=== PATIENT | female | born 1940 | race Caucasian/White ===

== ENCOUNTER 2017-02-14 14:31 | Emergency (ER) | payer MEDICARE, OTHER ==
[~2017-02-14] VITALS: Ht 170.2 cm; Wt 90.0 kg
[~2017-02-14 14:31] MED LIST: ABIL5TAB6 PO; ALBU1.25PR NEB; ALBU8I INH; BECL80AE3 INH; BUSP10TA PO; CEPH500 PO; DILA2TAB2 PO; DIVA250ER PO; ECOT81TA2 PO; ESCI10TA PO; FLOV44AE IN; GLIP5 PO; LOPE2 PO; METO25CR PO; MONT10 PO; NYSTT TOPICAL; OMEP20TA39 PO; SIMV40 PO; TEMA15 PO; XANA0.5T PO; Z.0.OXYGENDME NC; ZOFR4TAB3 SL
[2017-02-14 14:35] VITALS: BP 149/73; PULSE 65; RESP 18; TEMP 98.9; O2SAT 94
--- NOTE | 2017-02-14 14:41 | PD ---
HPI Chief Complaint: Abdominal Pain Time Seen by Provider: 14:41 Travel History International Travel<30 days: No Contact w/Intl Traveler<30days: No Traveled to known affect area: No History of Present Illness HPI 76-year-old female came to the emergency room with history of left low quadrant pain. Patient says it's been going on for past 2-3 days. Her daughter is here with her and says her appetite has been fine. No history of vomiting but she does have diarrhea. Patient has history of diverticulitis and had partial colectomy done asked here and had colostomy for 4-5 months. Vital signs were stable. [facility] Past Medical History Narrative Medical List of her medical, surgical, social and family history was reviewed from the nursing note. Arthritis: No Asthma: Yes Autoimmune Disease: No Blood Disorders: No Anxiety: Yes Depression: Yes Heart Rhythm Problems: No Cancer: No Cardiovascular Problems: Yes (hx of htn on meds) High Cholesterol: Yes Chemotherapy: No Chest Pain: No Congestive Heart Failure: No COPD: Yes Cerebrovascular Accident: No Diabetes: Yes (type 2) Diminished Hearing: No Endocrine: Yes Gastrointestinal Disorders: Yes ("PROBLEMS DIGESTING MY FOOD") GERD: Yes Glaucoma: No Genitourinary: Yes (UTI,RETENTION) Headaches: Yes Hepatitis: No Hiatal Hernia: Yes (HERNIA REPAIR) Hypertension: Yes Immune Disorder: No Implanted Vascular Access Dvce: Yes Kidney Stones: Yes Musculoskeletal: Yes Neurologic: Yes Psychiatric: Yes (DEPRESSION, BIPOLAR) Reproductive: No Respiratory: Yes (copd) Immunizations Current: No Migraines: No Myocardial Infarction: No Radiation Therapy: No Renal Failure: No Seizures: No Sickle Cell Disease: No Sleep Apnea: Yes (USES CPAP AT NIGHT) Thyroid Disease: No Ulcer: Yes PNEUMOCCOCAL Vaccine (Year): 1 ?: Not Menopausal: Yes : 1 Para: 1 Past Surgical History Abdominal Surgery: Yes (COLOSTOMY REVERSAL,APPENDECTOMY,HERNIA REPAIR) AICD: No Appendectomy: Yes Arteriovenous Shunt: No Body Medical Devices: RIGHT ANKLE FX FIXED WITH PIN & SCREWS, BILATERAL BREAST IMPLANTS Cardiac Surgery: No Cholecystectomy: No Ear Surgery: No Endocrine Surgery: No Eye Surgery: No Genitourinary Surgery: No Gynecologic Surgery: Yes (PARTIAL HYSTERECTOMY) Hysterectomy: Yes Insulin Pump: No Joint Replacement: No Oral Surgery: No Pacemaker: No Thoracic Surgery: No Other Surgery: Yes (APPENDECTOMY, COLOSTOMY,HYSTERECTOMY, BREAST IMPLANTS , REVERSAL OF COLOSTOM) Social History Alcohol Use: No Tobacco Use: No (QUIT 10 YRS AGO SMOKED FOR 30+ YRS 1 PPD) Substance Use: No Allergies-Medications (Allergen,Severity, Reaction): Coded Allergies: Trazodone (Verified Allergy, Severe, HIVES, 02/14/17) Levaquin (Verified Allergy, Mild, Itching, 02/14/17) erythema and pruritis at infusion site Codeine (Verified Adverse Reaction, Severe, NAUSEA/VOMITING, 02/14/17) Demerol (Verified Adverse Reaction, Severe, NAUSEA/VOMITING, 02/14/17) Comments List of her allergies reviewed from the nursing note. Reported Meds & Prescriptions Reported Meds & Active Scripts Active Keflex (Cephalexin) 500 Mg Cap 500 Mg PO Q6H 5 Days Reported Centrum (Multiple Vitamins W/ Minerals) 1 Tab 1 Tab PO DAILY Melatonin 3 Mg Cap 2 Cap PO HS Mirtazapine 15 Mg Tab 15 Mg PO HS Montelukast (Montelukast Sodium) 10 Mg Tab 10 Mg PO HS Zocor (Simvastatin) 20 Mg Tab 20 Mg PO DAILY Metoprolol Tartrate 25 Mg Tab 25 Mg PO DAILY Temazepam 30 Mg Cap 30 Mg PO HS PRN Omeprazole 40 Mg Cap 40 Mg PO DAILY Furosemide 20 Mg Tab 20 Mg PO DAILY Glipizide 10 Mg Tab 10 Mg PO TIDAC Take 30 minutes before a meal Flovent Hfa 10.6 GM Inh (Fluticasone Propionate) 44 Mcg/Act Inh 2 Puff INH BID Use daily at the same time. Escitalopram (Escitalopram Oxalate) 20 Mg Tab 20 Mg PO DAILY Divalproex ER (Divalproex Sodium) 250 Mg Kiya 250 Mg PO DAILY Buspirone (Buspirone HCl) 30 Mg Tab 30 Mg PO TID Aripiprazole 30 Mg Tab 30 Mg PO DAILY Alprazolam 0.5 Mg Tab 0.5 Mg PO TID Albuterol Neb (Albuterol Sulfate) 1.25 Mg/3 Ml Neb 1.25 Mg NEB Q4HR NEB PRN Proair Hfa 8.5 GM Inh (Albuterol Sulfate) 90 Mcg/Act Aer 2 Puff INH Q4-6H PRN 108 mcg/actuation Narrative Medication List of her home medications reviewed from the nursing note. Review of Systems Except as stated in HPI: all other systems reviewed are Neg Physical Exam Narrative GENERAL: Awake, alert, elderly, moderate distress SKIN: Focused skin assessment warm/dry. HEAD: Atraumatic. Normocephalic. EYES: Pupils equal and round. No scleral icterus. No injection or drainage. ENT: No nasal bleeding or discharge. Mucous membranes pink and moist. NECK: Trachea midline. No JVD. CARDIOVASCULAR: Regular rate and rhythm. No murmur appreciated. RESPIRATORY: No accessory muscle use. Clear to auscultation. Breath sounds equal bilaterally. GASTROINTESTINAL: Abdomen soft, tender left lower quadrant, nondistended. Hepatic and splenic margins not palpable. MUSCULOSKELETAL: No obvious deformities. No clubbing. No cyanosis. No edema. NEUROLOGICAL: Awake and alert. No obvious cranial nerve deficits. Motor grossly within normal limits. Normal speech. PSYCHIATRIC: Appropriate mood and affect; insight and judgment normal. Data Data Last Documented VS Vital Signs Date Time Temp Pulse Resp B/P Pulse Ox O2 Delivery O2 Flow Rate FiO2 02/14/17 16:24 88 16 135/64 94 Room Air 02/14/17 14:35 98.9 Orders Complete Blood Count With Diff (02/14/17 14:56) Comprehensive Metabolic Panel (02/14/17 14:56) Lipase (02/14/17 14:56) Urinalysis - C+S If Indicated (02/14/17 14:56) Ct Abd/Pel W/O Iv Contrast (02/14/17 14:56) Iv Access Insert/Monitor (02/14/17 14:56) Ecg Monitoring (02/14/17 14:56) Oximetry (02/14/17 14:56) Sodium Chlor 0.9% 1000 Ml Inj (Ns 1000 M (02/14/17 14:56) Sodium Chloride 0.9% Flush (Ns Flush) (02/14/17 15:00) Urine Culture (02/14/17 16:40) Ketorolac Inj (Toradol Inj) (02/14/17 17:00) Labs Laboratory Tests Test 02/14/17 02/14/17 15:05 16:40 Sodium Level 142 MEQ/L Potassium Level 4.6 MEQ/L Chloride Level 103 MEQ/L Carbon Dioxide Level 32.6 MEQ/L Anion Gap 6 MEQ/L Blood Urea Nitrogen 14 MG/DL Creatinine 1.10 MG/DL Estimat Glomerular Filtration 48 ML/MIN Rate Random Glucose 172 MG/DL Calcium Level 8.9 MG/DL Total Bilirubin 0.4 MG/DL Aspartate Amino Transf 40 U/L (AST/SGOT) Alanine Aminotransferase 29 U/L (ALT/SGPT) Alkaline Phosphatase 114 U/L Total Protein 7.3 GM/DL Albumin 3.1 GM/DL Lipase 120 U/L White Blood Count 10.7 TH/MM3 Red Blood Count 4.18 MIL/MM3 Hemoglobin 13.3 GM/DL Hematocrit 38.7 % Mean Corpuscular Volume 92.6 FL Mean Corpuscular Hemoglobin 31.7 PG Mean Corpuscular Hemoglobin 34.2 % Concent Red Cell Distribution Width 14.0 % Platelet Count 266 TH/MM3 Mean Platelet Volume 7.1 FL Neutrophils (%) (Auto) 70.5 % Lymphocytes (%) (Auto) 20.2 % Monocytes (%) (Auto) 6.8 % Eosinophils (%) (Auto) 1.4 % Basophils (%) (Auto) 1.1 % Neutrophils # (Auto) 7.5 TH/MM3 Lymphocytes # (Auto) 2.2 TH/MM3 Monocytes # (Auto) 0.7 TH/MM3 Eosinophils # (Auto) 0.2 TH/MM3 Basophils # (Auto) 0.1 TH/MM3 CBC Comment DIFF FINAL Differential Comment Urine Color YELLOW Urine Turbidity CLEAR Urine pH 5.5 Urine Specific [place] 1.011 Urine Protein NEG mg/dL Urine Glucose (UA) NEG mg/dL Urine Ketones NEG mg/dL Urine Occult Blood NEG Urine Nitrite NEG Urine Bilirubin NEG Urine Leukocyte Esterase SMALL Urine RBC 0-3 /hpf Urine WBC 3-5 /hpf Urine WBC Clumps RARE Urine Squamous Epithelial > 8 /hpf Cells Urine Bacteria FEW /hpf Urine Mucus FEW /lpf Microscopic Urinalysis Comment CULTURE INDICATED MDM Medical Decision Making Medical Screen Exam Complete: Yes Emergency Medical Condition: Yes Medical Record Reviewed: Yes Differential Diagnosis Acute diverticulitis, colitis, abdominal pain NOS Narrative Course 3:27 PM awaiting for the CAT scan to be done and resulted. CBC is back and within normal limits. Awaiting for the chemistry. Patient will be signed over to the oncoming ER physician at 4 PM. Procedures EKG Prior to Arrival: No Scripts Cephalexin (Keflex)500 Mg [id number] Mg PO Q6H 5 Days Ref 0 Prov:Adalberto Carlisle MD 02/14/17 Anastasia Cortes MD February 14, 2017 14:41
[2017-02-14] MEDS ORDERED: SODIUM CHLOR 0.9% 1000 ML INJ 1,000 ML IV SCH (14:56)
[2017-02-14] MEDS ORDERED: SODIUM CHLORIDE 0.9% FLUSH 10 ML FLUSH IV FLUSH PRN (15:00)
[2017-02-14 15:09] VITALS: O2SAT 94
[2017-02-14] MEDS ORDERED: FURO20TA PO (15:13)
[2017-02-14] MEDS ORDERED: ALBU1.25 NEB (15:13)
[2017-02-14] MEDS ORDERED: DIVA250T3 PO (15:13)
[2017-02-14] MEDS ORDERED: BUSP30TA PO (15:13)
[2017-02-14] MEDS ORDERED: GLIP10TA6 PO (15:13)
[2017-02-14] MEDS ORDERED: TEMA30CA PO (15:13)
[2017-02-14] MEDS ORDERED: ALPR0.5T3 PO (15:13)
[2017-02-14] MEDS ORDERED: FLUTI44I INH (15:13)
[2017-02-14] MEDS ORDERED: ARIP1TAB15 PO (15:13)
[2017-02-14] MEDS ORDERED: ALBUAER3 INH (15:13)
[2017-02-14] MEDS ORDERED: OMEP40CA2 PO (15:13)
[2017-02-14] MEDS ORDERED: ESCI20TA PO (15:13)
[2017-02-14] MEDS ORDERED: MONT10TA4 PO (15:14)
[2017-02-14] MEDS ORDERED: ZOCO20TA PO (15:14)
[2017-02-14] MEDS ORDERED: MELA3CAP PO (15:14)
[2017-02-14] MEDS ORDERED: METO25TA3 PO (15:14)
[2017-02-14] MEDS ORDERED: MIRTA15 PO (15:14)
[2017-02-14] MEDS ORDERED: MULT-6 PO (15:14)
[2017-02-14 15:19] LABS: AUTOMATED NEUTROPHIL # 7.5 TH/MM3 (1.8-7.7); BASOPHIL # 0.1 TH/MM3 (0-0.2); BASOPHIL % 1.1 % (0.0-2.0); EOSINOPHIL # 0.2 TH/MM3 (0-0.4); EOSINOPHIL % 1.4 % (0.0-4.0); HEMATOCRIT 38.7 % (35.0-46.0); HEMO FLAGS DIFF FINAL; LYMPH % 20.2 % (9.0-44.0); LYMPHOCYTE # 2.2 TH/MM3 (1.0-4.8); MEAN CELL VOLUME 92.6 FL (80.0-100.0); MEAN CORPUSCULAR HEMOGLOBIN 31.7 PG (27.0-34.0); MEAN CORPUSCULAR HGB CONC 34.2 % (32.0-36.0); MONO % 6.8 % (0.0-8.0); NEUT % 70.5 % (16.0-70.0); PLATELET COUNT 266 TH/MM3 (150-450); RED BLOOD COUNT 4.18 MIL/MM3 (4.00-5.30); WHITE BLOOD COUNT 10.7 TH/MM3 (4.0-11.0)
[2017-02-14 15:31] LABS: CHLORIDE 103 MEQ/L (98-107); SODIUM (NA) 142 MEQ/L (136-145)
[2017-02-14 15:36] LABS: ANION GAP 6 MEQ/L (5-15); BICARBONATE 32.6 MEQ/L (21.0-32.0); BLOOD UREA NITROGEN 14 MG/DL (7-18)
[2017-02-14 15:39] LABS: ALT (GPT) 29 U/L (10-53); AST (GOT) 40 U/L (15-37); GLOMERULAR FILTRATION RATE 48 ML/MIN (>89)
[2017-02-14 15:40] LABS: TOTAL BILIRUBIN ADULT 0.4 MG/DL (0.2-1.0)
[2017-02-14 15:42] LABS: ALKALINE PHOSPHATASE 114 U/L (45-117)
[2017-02-14 16:14] LABS: POTASSIUM 4.6 MEQ/L (3.5-5.1)
--- NOTE | 2017-02-14 16:14 | RADHPO ---
EXAM DATE/TIME: 02/14/2017 15:05 [place] COMPARISON: CT ABDOMEN & PELVIS W/O CONTRAST, February 26, 2015, 16:17. INDICATIONS : Abdominal pain, cough. ORAL CONTRAST: No oral contrast ingested. RADIATION DOSE: 22.58 CTDIvol (mGy) MEDICAL HISTORY : Hypertension. Hernia. UTI SURGICAL HISTORY : Colostomy. Hysterectomy. ENCOUNTER: Initial ACUITY: 1 day PAIN SCALE: 7/10 LOCATION: Left abdomen TECHNIQUE: Volumetric scanning of the abdomen and pelvis was performed. Using automated exposure control and adjustment of the mA and/or kV according to patient size, radiation dose was kept as low as reasonably achievable to obtain optimal diagnostic quality images. FINDINGS: The lung bases are clear. The liver is free of focal defects. Granulomas are present in the spleen. The pancreas is unremarkable. Gallstones are present in a benign-appearing gallbladde r. Left kidney is unremarkable. Tiny nonobstructing stones are seen in the right kidney. A small midline hernia is evident containing only fat. There is no ascites or adenopathy. Evidence for previous colonic surgery is noted. There is no free a ir or obstruction. CONCLUSION: 1. Negative CT of the abdomen and pelvis for an acute process. I do not see an etiology for the patie nt's abdominal pain. 2. Evidence for a previous colonic surgery is noted. Derik Torres MD FACR on February 14, 2017 at 15:52 Board Certified Radiologist. This report was verified electronically.
[2017-02-14 16:24] VITALS: BP 135/64; PULSE 88; RESP 16; O2SAT 94
[2017-02-14 16:45] LABS: BLOOD, URINE NEG (NEG); GLUCOSE,URINE NEG (NEG); KETONE, URINE NEG (NEG); NITRITE,URINE NEG (NEG); PH, URINE 5.5 (5.0-8.5)
[2017-02-14 16:53] LABS: URINE COLOR YELLOW (YELLW/STRAW)
[2017-02-14 16:54] LABS: BACTERIA, URINE FEW /hpf; MUCUS URINE FEW /lpf (OCC); RBC, URINE 0-3 /hpf (0-3); SQUAMOUS EPITHELIAL CELL URINE > 8 /hpf (0-5)
[2017-02-14 16:55] LABS: COMMENT (UR) CULTURE INDICATED; CULTURE IF INDICATED CULTURE INDICATED
[2017-02-14] MEDS ORDERED: KETOROLAC TROMETHAMINE 30 MG/ML (IVP) VIAL IV PUSH ONE (17:00)
[2017-02-14] MEDS ORDERED: CEPH-460 PO (17:00)
--- NOTE | 2017-02-14 17:00 | PD ---
Data Data Last Documented VS Vital Signs Date Time Temp Pulse Resp B/P Pulse Ox O2 Delivery O2 Flow Rate FiO2 02/14/17 16:24 88 16 135/64 94 Room Air 02/14/17 14:35 98.9 Orders Complete Blood Count With Diff (02/14/17 14:56) Comprehensive Metabolic Panel (02/14/17 14:56) Lipase (02/14/17 14:56) Urinalysis - C+S If Indicated (02/14/17 14:56) Ct Abd/Pel W/O Iv Contrast (02/14/17 14:56) Iv Access Insert/Monitor (02/14/17 14:56) Ecg Monitoring (02/14/17 14:56) Oximetry (02/14/17 14:56) Sodium Chlor 0.9% 1000 Ml Inj (Ns 1000 M (02/14/17 14:56) Sodium Chloride 0.9% Flush (Ns Flush) (02/14/17 15:00) Urine Culture (02/14/17 16:40) Ketorolac Inj (Toradol Inj) (02/14/17 17:00) Labs Laboratory Tests Test 02/14/17 02/14/17 15:05 16:40 White Blood Count 10.7 TH/MM3 Red Blood Count 4.18 MIL/MM3 Hemoglobin 13.3 GM/DL Hematocrit 38.7 % Mean Corpuscular Volume 92.6 FL Mean Corpuscular Hemoglobin 31.7 PG Mean Corpuscular Hemoglobin 34.2 % Concent Red Cell Distribution Width 14.0 % Platelet Count 266 TH/MM3 Mean Platelet Volume 7.1 FL Neutrophils (%) (Auto) 70.5 % Lymphocytes (%) (Auto) 20.2 % Monocytes (%) (Auto) 6.8 % Eosinophils (%) (Auto) 1.4 % Basophils (%) (Auto) 1.1 % Neutrophils # (Auto) 7.5 TH/MM3 Lymphocytes # (Auto) 2.2 TH/MM3 Monocytes # (Auto) 0.7 TH/MM3 Eosinophils # (Auto) 0.2 TH/MM3 Basophils # (Auto) 0.1 TH/MM3 CBC Comment DIFF FINAL Differential Comment Sodium Level 142 MEQ/L Potassium Level 4.6 MEQ/L Chloride Level 103 MEQ/L Carbon Dioxide Level 32.6 MEQ/L Anion Gap 6 MEQ/L Blood Urea Nitrogen 14 MG/DL Creatinine 1.10 MG/DL Estimat Glomerular Filtration 48 ML/MIN Rate Random Glucose 172 MG/DL Calcium Level 8.9 MG/DL Total Bilirubin 0.4 MG/DL Aspartate Amino Transf 40 U/L (AST/SGOT) Alanine Aminotransferase 29 U/L (ALT/SGPT) Alkaline Phosphatase 114 U/L Total Protein 7.3 GM/DL Albumin 3.1 GM/DL Lipase 120 U/L Urine Color YELLOW Urine Turbidity CLEAR Urine pH 5.5 Urine Specific [place] 1.011 Urine Protein NEG mg/dL Urine Glucose (UA) NEG mg/dL Urine Ketones NEG mg/dL Urine Occult Blood NEG Urine Nitrite NEG Urine Bilirubin NEG Urine Leukocyte Esterase SMALL Urine RBC 0-3 /hpf Urine WBC 3-5 /hpf Urine WBC Clumps RARE Urine Squamous Epithelial > 8 /hpf Cells Urine Bacteria FEW /hpf Urine Mucus FEW /lpf Microscopic Urinalysis Comment CULTURE INDICATED MDM Supervised Visit with SCHUYLER: No Narrative Course Patient care assumed from Dr. Cortes at 1600. Is a 76-year-old female presents with left lower quadrant abdominal pain for the past week. She has a completely benign abdominal exam. There is no tenderness no masses no rebound no percussive tenderness. She is resting soundly in the ER stretcher in no apparent distress. She states that currently she is having 8 out of 10 pain. She was given Toradol after my initial exam. I structures were to follow-up her CT, chemistries, and urine tests and disposition appropriate. Patient's CT exam without contrast shows "negative CT of abdomen and pelvis for an acute process. I do not see an etiology for the patient's pain. Evidence for previous colonic surgery is noted." Patient's urinalysis is contaminated with white blood cell clumps. The patient is not having any urinary symptoms. Could be early UTI versus asymptomatic bacteriuria either way the patient has indications to treat. Regimen of Keflex is ordered. Results with the patient after reviewing her records. The review the records that show that the patient was admitted sometime in the past with intractable abdominal pain and ultimately was diagnosed with a bowel perforation. Currently her abdomen is benign and I think she is stable for discharge. Discussed needs follow-up with her motion study technician since she states that she does not have one. She was given a referral for 1. Discussed need follow-up with a primary care physician within a week. Discussed return to ED criteria including fevers. The patient is agreeable for discharge at this time. Diagnosis Primary Impression: LLQ abdominal pain Additional Impression: Asymptomatic bacteriuria Referrals: Twan José MD Med/Other Pt SpecificInfo: Prescription(s) given Scripts Cephalexin (Keflex)500 Mg Phm094 Mg PO Q6H 5 Days Ref 0 Prov:Adalberto Carlisle MD 02/14/17 Disposition: 01 DISCHARGE HOME Condition: Stable Adalberto Carlisle MD February 14, 2017 17:00
== END 2017-02-14 17:19 | disposition home or self-care (01) ==
LOC: PHEFT 14:31
DX: R10.32 Left lower quadrant pain (principal); R82.71 Bacteriuria; R19.7 Diarrhea, unspecified; K57.92 Diverticulitis of intestine, part unspecified, without perforation or abscess without bleeding; J45.909 Unspecified asthma, uncomplicated; E11.9 Type 2 diabetes mellitus without complications; K21.9 Gastro-esophageal reflux disease without esophagitis; I10 Essential (primary) hypertension; J44.9 Chronic obstructive pulmonary disease, unspecified
CPT/HCPCS: 74176; 80053; 81001; 83690; 85025; 87077; 87086; 87186; 96361; 96374; 99284; J1885; J7030

== ENCOUNTER 2017-03-05 22:27 | Emergency (ER) | payer MEDICARE, OTHER ==
[~2017-03-05] VITALS: Ht 170.2 cm; Wt 92.0 kg
[~2017-03-05 22:27] MED LIST changes: -ABIL5TAB6 PO; +ALBU1.25 NEB; -ALBU1.25PR NEB; -ALBU8I INH; +ALBUAER3 INH; +ALPR0.5T3 PO; +ARIP1TAB15 PO; -BECL80AE3 INH; -BUSP10TA PO; +BUSP30TA PO; +CEPH-460 PO; -CEPH500 PO; -DILA2TAB2 PO; -DIVA250ER PO; +DIVA250T3 PO; -ECOT81TA2 PO; -ESCI10TA PO; +ESCI20TA PO; -FLOV44AE IN; +FLUTI44I INH; +FURO20TA PO; +GLIP10TA6 PO; -GLIP5 PO; -LOPE2 PO; +MELA3CAP PO; -METO25CR PO; +METO25TA3 PO; +MIRTA15 PO; -MONT10 PO; +MONT10TA4 PO; +MULT-6 PO; -NYSTT TOPICAL; -OMEP20TA39 PO; +OMEP40CA2 PO; -SIMV40 PO; -TEMA15 PO; +TEMA30CA PO; -XANA0.5T PO; -Z.0.OXYGENDME NC; +ZOCO20TA PO; -ZOFR4TAB3 SL
[2017-03-05 22:34] VITALS: BP 100/77; PULSE 88; RESP 14; TEMP 98.3; O2SAT 93
--- NOTE | 2017-03-05 22:56 | PD ---
HPI Chief Complaint: abdominal pain Time Seen by Provider: 22:40 Travel History International Travel<30 days: No Contact w/Intl Traveler<30days: No Traveled to known affect area: No History of Present Illness HPI This 76-year-old female is complaining of lower abdominal pain. She was here 2- 3 weeks ago for similar pain. At that time she had a CT scan done which was negative. She was found to have a urinary tract infection and was put on Keflex. She followed up with her primary care physician apparently Keflex was not effective and she was changed to Cipro. She has taken most of the Cipro and is at the end of the Cipro but is having increasing abdominal pain. The pain is bilateral in the lower abdomen. She does have a history of diverticulitis and about 2 years ago had surgery for diverticulitis and had a colostomy for temporarily. She does not have a colostomy now. She does have stage I lung cancer that is being monitored. She has stopped smoking she's been eating okay. She is not aware of any fever. PFSH Past Medical History Arthritis: No Asthma: Yes Autoimmune Disease: No Blood Disorders: No Anxiety: Yes Depression: Yes Heart Rhythm Problems: No Cancer: No Cardiovascular Problems: Yes (hx of htn on meds) High Cholesterol: Yes Chemotherapy: No Chest Pain: No Congestive Heart Failure: No COPD: Yes Cerebrovascular Accident: No Diabetes: Yes (type 2) Diminished Hearing: No Endocrine: Yes Gastrointestinal Disorders: Yes ("PROBLEMS DIGESTING MY FOOD") GERD: Yes Glaucoma: No Genitourinary: Yes (UTI,RETENTION) Headaches: Yes Hepatitis: No Hiatal Hernia: Yes (HERNIA REPAIR) Hypertension: Yes Immune Disorder: No Implanted Vascular Access Dvce: Yes Kidney Stones: Yes Musculoskeletal: Yes Neurologic: Yes Psychiatric: Yes (DEPRESSION, BIPOLAR) Reproductive: No Respiratory: Yes (copd) Immunizations Current: No Migraines: No Myocardial Infarction: No Radiation Therapy: No Renal Failure: No Seizures: No Sickle Cell Disease: No Sleep Apnea: Yes (USES CPAP AT NIGHT) Thyroid Disease: No Ulcer: Yes PNEUMOCCOCAL Vaccine (Year): 1 Menopausal: Yes : 1 Para: 1 Past Surgical History Abdominal Surgery: Yes (COLOSTOMY REVERSAL,APPENDECTOMY,HERNIA REPAIR) AICD: No Appendectomy: Yes Arteriovenous Shunt: No Body Medical Devices: RIGHT ANKLE FX FIXED WITH PIN & SCREWS, BILATERAL BREAST IMPLANTS Cardiac Surgery: No Cholecystectomy: No Ear Surgery: No Endocrine Surgery: No Eye Surgery: No Genitourinary Surgery: No Gynecologic Surgery: Yes (PARTIAL HYSTERECTOMY) Hysterectomy: Yes Insulin Pump: No Joint Replacement: No Oral Surgery: No Pacemaker: No Thoracic Surgery: No Other Surgery: Yes (APPENDECTOMY, COLOSTOMY,HYSTERECTOMY, BREAST IMPLANTS , REVERSAL OF COLOSTOM) Social History Alcohol Use: No Tobacco Use: No (QUIT 10 YRS AGO SMOKED FOR 30+ YRS 1 PPD) Substance Use: No Allergies-Medications (Allergen,Severity, Reaction): Coded Allergies: Trazodone (Verified Allergy, Severe, HIVES, 02/14/17) Levaquin (Verified Allergy, Mild, Itching, 02/14/17) erythema and pruritis at infusion site Codeine (Verified Adverse Reaction, Severe, NAUSEA/VOMITING, 02/14/17) Demerol (Verified Adverse Reaction, Severe, NAUSEA/VOMITING, 02/14/17) Reported Meds & Prescriptions Reported Meds & Active Scripts Active Percocet (Oxycodone-Acetaminophen) 5-325 mg Tab 1 Tab PO Q6H PRN Ciprofloxacin (Ciprofloxacin HCl) 500 Mg Tab 500 Mg PO BID 7 Days Reported Centrum (Multiple Vitamins W/ Minerals) 1 Chew 1 Tab CHEW DAILY Melatonin 5 Mg Tab 6 Mg PO HS Mirtazapine 15 Mg Tab 15 Mg PO HS Montelukast (Montelukast Sodium) 10 Mg Tab 10 Mg PO HS Zocor (Simvastatin) 20 Mg Tab 20 Mg PO DAILY Metoprolol Tartrate 25 Mg Tab 25 Mg PO DAILY Temazepam 30 Mg Cap 30 Mg PO HS PRN Omeprazole 40 Mg Cap 40 Mg PO DAILY Furosemide 20 Mg Tab 20 Mg PO DAILY Glipizide 10 Mg Tab 10 Mg PO TIDAC Take 30 minutes before a meal Flovent Hfa 10.6 GM Inh (Fluticasone Propionate) 44 Mcg/Act Inh 2 Puff INH BID Use daily at the same time. Escitalopram (Escitalopram Oxalate) 20 Mg Tab 20 Mg PO DAILY Divalproex ER (Divalproex Sodium) 250 Mg Kiya 250 Mg PO DAILY Buspirone (Buspirone HCl) 30 Mg Tab 30 Mg PO TID Aripiprazole 30 Mg Tab 30 Mg PO DAILY Alprazolam 0.5 Mg Tab 0.5 Mg PO TID Albuterol Neb (Albuterol Sulfate) 1.25 Mg/3 Ml Neb 1.25 Mg NEB Q4HR NEB PRN Proair Hfa 8.5 GM Inh (Albuterol Sulfate) 90 Mcg/Act Aer 2 Puff INH Q4-6H PRN 108 mcg/actuation Review of Systems General / Constitutional: No: Fever, Chills Eyes: No: Diploplia, Blurred Vision HENT: No: Headaches, Vertigo Cardiovascular: No: Chest Pain or Discomfort, Palpitations Respiratory: No: Cough, Shortness of Breath Gastrointestinal: Positive: Abdominal Pain, No: Constipation Genitourinary: No: Urgency, Frequency Musculoskeletal: No: Myalgias Skin: No Rash Neurologic: No: Weakness, Dizziness Physical Exam Narrative GENERAL: Well-developed female SKIN: Focused skin assessment warm/dry. HEAD: Atraumatic. Normocephalic. EYES: Pupils equal and round. No scleral icterus. No injection or drainage. ENT: No nasal bleeding or discharge. Mucous membranes pink and moist. NECK: Trachea midline. No JVD. CARDIOVASCULAR: Regular rate and rhythm. No murmur appreciated. RESPIRATORY: No accessory muscle use. Clear to auscultation. Breath sounds equal bilaterally. GASTROINTESTINAL: Abdomen there are multiple abdominal scars from previous surgeries. There is bilateral lower abdominal tenderness without discrete mass. Bowel sounds are active MUSCULOSKELETAL: No obvious deformities. No clubbing. No cyanosis. No edema. NEUROLOGICAL: Awake and alert. No obvious cranial nerve deficits. Motor grossly within normal limits. Normal speech. PSYCHIATRIC: Appropriate mood and affect; insight and judgment normal. Data Data Last Documented VS Vital Signs Date Time Temp Pulse Resp B/P Pulse Ox O2 Delivery O2 Flow Rate FiO2 03/06/17 03:03 14 03/06/17 02:45 77 110/57 92 Room Air 03/05/17 22:34 98.3 Orders Complete Blood Count With Diff (03/05/17 22:56) Comprehensive Metabolic Panel (03/05/17 22:56) Lipase (03/05/17 22:56) Urinalysis - C+S If Indicated (03/05/17 22:56) Sodium Chlor 0.9% 1000 Ml Inj (Ns 1000 M (03/05/17 23:00) Ondansetron Inj (Zofran Inj) (03/05/17 23:00) Hydromorphone Pf Inj (Dilaudid Pf Inj) (03/05/17 23:00) Urine Culture (03/05/17 23:30) Ct Abd/Pel W Iv Contrast(Rout) (03/06/17 00:02) Iohexol 350 Inj (Omnipaque 350 Inj) (03/06/17 01:23) Ciprofloxacin 400 Mg Premix (Cipro 400 M (03/06/17 01:45) Oxycodone-Acetamin 5-325 Mg (Percocet (03/06/17 01:45) Labs Laboratory Tests Test 03/05/17 03/05/17 23:30 23:45 Urine Color YELLOW Urine Turbidity SLIGHT Urine pH 5.5 Urine Specific [place] 1.008 Urine Protein NEG mg/dL Urine Glucose (UA) 100 mg/dL Urine Ketones NEG mg/dL Urine Occult Blood NEG Urine Nitrite NEG Urine Bilirubin NEG Urine Leukocyte Esterase MOD Urine RBC 0-3 /hpf Urine WBC 25-49 /hpf Urine Squamous Epithelial > 8 /hpf Cells Urine Bacteria FEW /hpf Microscopic Urinalysis Comment CULTURE INDICATED White Blood Count 11.4 TH/MM3 Red Blood Count 4.03 MIL/MM3 Hemoglobin 12.3 GM/DL Hematocrit 37.8 % Mean Corpuscular Volume 93.8 FL Mean Corpuscular Hemoglobin 30.5 PG Mean Corpuscular Hemoglobin 32.6 % Concent Red Cell Distribution Width 15.4 % Platelet Count 258 TH/MM3 Mean Platelet Volume 7.7 FL Neutrophils (%) (Auto) 65.6 % Lymphocytes (%) (Auto) 26.0 % Monocytes (%) (Auto) 7.0 % Eosinophils (%) (Auto) 0.8 % Basophils (%) (Auto) 0.6 % Neutrophils # (Auto) 7.4 TH/MM3 Lymphocytes # (Auto) 3.0 TH/MM3 Monocytes # (Auto) 0.8 TH/MM3 Eosinophils # (Auto) 0.1 TH/MM3 Basophils # (Auto) 0.1 TH/MM3 CBC Comment DIFF FINAL Differential Comment Sodium Level 142 MEQ/L Potassium Level 3.9 MEQ/L Chloride Level 104 MEQ/L Carbon Dioxide Level 31.6 MEQ/L Anion Gap 6 MEQ/L Blood Urea Nitrogen 11 MG/DL Creatinine 1.10 MG/DL Estimat Glomerular Filtration 48 ML/MIN Rate Random Glucose 233 MG/DL Calcium Level 8.7 MG/DL Total Bilirubin 0.3 MG/DL Aspartate Amino Transf 23 U/L (AST/SGOT) Alanine Aminotransferase 29 U/L (ALT/SGPT) Alkaline Phosphatase 131 U/L Total Protein 7.0 GM/DL Albumin 3.1 GM/DL Lipase 180 U/L MDM Medical Decision Making Medical Screen Exam Complete: Yes Emergency Medical Condition: Yes Medical Record Reviewed: Yes Differential Diagnosis Differential includes UTI, diverticulitis, nonspecific abdominal pain Narrative Course As the patient does appear quite uncomfortable this time. Results are pending and disposition will be per the oncoming physician Diagnosis Primary Impression: abdominal pain Scripts Oxycodone-Acetaminophen (Percocet)5-325 mg Tab1 Tab PO Q6H PRN (PAIN) #12 TAB Ref 0 Prov:Fredy Weathers MD 03/06/17 Ciprofloxacin 500 Mg Xkg184 Mg PO BID 7 Days Ref 0 Prov:Fredy Weathers MD 03/06/17 Oniel Coyle MD March 05, 2017 22:56
[2017-03-05] MEDS ORDERED: HYDROmorphone HCL PF 1 MG/ML VIAL IV PUSH ONE (23:00)
[2017-03-05] MEDS ORDERED: SODIUM CHLOR 0.9% 1000 ML INJ 1,000 ML IV SCH (23:00)
[2017-03-05] MEDS ORDERED: ONDANSETRON HCL 4 MG/2 ML VIAL IV PUSH ONE (23:00)
[2017-03-05 23:40] VITALS: BP 140/64; PULSE 74; RESP 14; O2SAT 95
[2017-03-06 00:11] LABS: AUTOMATED NEUTROPHIL # 7.4 TH/MM3 (1.8-7.7); BASOPHIL # 0.1 TH/MM3 (0-0.2); BASOPHIL % 0.6 % (0.0-2.0); EOSINOPHIL # 0.1 TH/MM3 (0-0.4); EOSINOPHIL % 0.8 % (0.0-4.0); HEMATOCRIT 37.8 % (35.0-46.0); HEMO FLAGS DIFF FINAL; MEAN CELL VOLUME 93.8 FL (80.0-100.0); MEAN CORPUSCULAR HEMOGLOBIN 30.5 PG (27.0-34.0); MEAN CORPUSCULAR HGB CONC 32.6 % (32.0-36.0); NEUT % 65.6 % (16.0-70.0); PLATELET COUNT 258 TH/MM3 (150-450); RED BLOOD COUNT 4.03 MIL/MM3 (4.00-5.30); RED CELL DISTRIBUTION WIDTH 15.4 % (11.6-17.2); WHITE BLOOD COUNT 11.4 TH/MM3 (4.0-11.0)
[2017-03-06 00:11] LABS: BLOOD, URINE NEG (NEG); GLUCOSE,URINE 100 mg/dL (NEG); KETONE, URINE NEG (NEG); NITRITE,URINE NEG (NEG); PH, URINE 5.5 (5.0-8.5)
--- NOTE | 2017-03-06 00:14 | PD ---
Physical Exam Date Seen by Provider: March 06, 2017 Time Seen by Provider: 00:13 Narrative The patient is a 76-year-old female was initially evaluated by the previous physician, Dr. Juares. Please refer to the initial history, physical, diagnostic evaluation, and treatment modality plan. The patient was signed out at 12 AM with laboratory evaluation and CT of the abdomen and pelvis pending. Data Data Last Documented VS Vital Signs Date Time Temp Pulse Resp B/P Pulse Ox O2 Delivery O2 Flow Rate FiO2 03/05/17 22:34 98.3 88 14 100/77 93 Orders Complete Blood Count With Diff (03/05/17 22:56) Comprehensive Metabolic Panel (03/05/17 22:56) Lipase (03/05/17 22:56) Urinalysis - C+S If Indicated (03/05/17 22:56) Sodium Chlor 0.9% 1000 Ml Inj (Ns 1000 M (03/05/17 23:00) Ondansetron Inj (Zofran Inj) (03/05/17 23:00) Hydromorphone Pf Inj (Dilaudid Pf Inj) (03/05/17 23:00) Urine Culture (03/05/17 23:30) Ct Abd/Pel W Iv Contrast(Rout) (03/06/17 00:02) Iohexol 350 Inj (Omnipaque 350 Inj) (03/06/17 01:23) Ciprofloxacin 400 Mg Premix (Cipro 400 M (03/06/17 01:45) Oxycodone-Acetamin 5-325 Mg (Percocet (03/06/17 01:45) Labs Laboratory Tests Test 03/05/17 03/05/17 23:30 23:45 Urine Color YELLOW Urine Turbidity SLIGHT Urine pH 5.5 Urine Specific Arabi 1.008 Urine Protein NEG mg/dL Urine Glucose (UA) 100 mg/dL Urine Ketones NEG mg/dL Urine Occult Blood NEG Urine Nitrite NEG Urine Bilirubin NEG Urine Leukocyte Esterase MOD Urine RBC 0-3 /hpf Urine WBC 25-49 /hpf Urine Squamous Epithelial > 8 /hpf Cells Urine Bacteria FEW /hpf Microscopic Urinalysis Comment CULTURE INDICATED White Blood Count 11.4 TH/MM3 Red Blood Count 4.03 MIL/MM3 Hemoglobin 12.3 GM/DL Hematocrit 37.8 % Mean Corpuscular Volume 93.8 FL Mean Corpuscular Hemoglobin 30.5 PG Mean Corpuscular Hemoglobin 32.6 % Concent Red Cell Distribution Width 15.4 % Platelet Count 258 TH/MM3 Mean Platelet Volume 7.7 FL Neutrophils (%) (Auto) 65.6 % Lymphocytes (%) (Auto) 26.0 % Monocytes (%) (Auto) 7.0 % Eosinophils (%) (Auto) 0.8 % Basophils (%) (Auto) 0.6 % Neutrophils # (Auto) 7.4 TH/MM3 Lymphocytes # (Auto) 3.0 TH/MM3 Monocytes # (Auto) 0.8 TH/MM3 Eosinophils # (Auto) 0.1 TH/MM3 Basophils # (Auto) 0.1 TH/MM3 CBC Comment DIFF FINAL Differential Comment Sodium Level 142 MEQ/L Potassium Level 3.9 MEQ/L Chloride Level 104 MEQ/L Carbon Dioxide Level 31.6 MEQ/L Anion Gap 6 MEQ/L Blood Urea Nitrogen 11 MG/DL Creatinine 1.10 MG/DL Estimat Glomerular Filtration 48 ML/MIN Rate Random Glucose 233 MG/DL Calcium Level 8.7 MG/DL Total Bilirubin 0.3 MG/DL Aspartate Amino Transf 23 U/L (AST/SGOT) Alanine Aminotransferase 29 U/L (ALT/SGPT) Alkaline Phosphatase 131 U/L Total Protein 7.0 GM/DL Albumin 3.1 GM/DL Lipase 180 U/L [facility] Medical Record Reviewed: Yes Supervised Visit with SCHUYLER: No Interpretation(s) CT the abdomen and pelvis reveals gallstone, no acute CT findings. Laboratory Tests Test 03/05/17 03/05/17 23:30 23:45 Urine Color YELLOW Urine Turbidity SLIGHT Urine pH 5.5 Urine Specific Arabi 1.008 Urine Protein NEG mg/dL Urine Glucose (UA) 100 mg/dL Urine Ketones NEG mg/dL Urine Occult Blood NEG Urine Nitrite NEG Urine Bilirubin NEG Urine Leukocyte Esterase MOD Urine RBC 0-3 /hpf Urine WBC 25-49 /hpf Urine Squamous Epithelial > 8 /hpf Cells Urine Bacteria FEW /hpf Microscopic Urinalysis Comment CULTURE INDICATED White Blood Count 11.4 TH/MM3 Red Blood Count 4.03 MIL/MM3 Hemoglobin 12.3 GM/DL Hematocrit 37.8 % Mean Corpuscular Volume 93.8 FL Mean Corpuscular Hemoglobin 30.5 PG Mean Corpuscular Hemoglobin 32.6 % Concent Red Cell Distribution Width 15.4 % Platelet Count 258 TH/MM3 Mean Platelet Volume 7.7 FL Neutrophils (%) (Auto) 65.6 % Lymphocytes (%) (Auto) 26.0 % Monocytes (%) (Auto) 7.0 % Eosinophils (%) (Auto) 0.8 % Basophils (%) (Auto) 0.6 % Neutrophils # (Auto) 7.4 TH/MM3 Lymphocytes # (Auto) 3.0 TH/MM3 Monocytes # (Auto) 0.8 TH/MM3 Eosinophils # (Auto) 0.1 TH/MM3 Basophils # (Auto) 0.1 TH/MM3 CBC Comment DIFF FINAL Differential Comment Sodium Level 142 MEQ/L Potassium Level 3.9 MEQ/L Chloride Level 104 MEQ/L Carbon Dioxide Level 31.6 MEQ/L Anion Gap 6 MEQ/L Blood Urea Nitrogen 11 MG/DL Creatinine 1.10 MG/DL Estimat Glomerular Filtration 48 ML/MIN Rate Random Glucose 233 MG/DL Calcium Level 8.7 MG/DL Total Bilirubin 0.3 MG/DL Aspartate Amino Transf 23 U/L (AST/SGOT) Alanine Aminotransferase 29 U/L (ALT/SGPT) Alkaline Phosphatase 131 U/L Total Protein 7.0 GM/DL Albumin 3.1 GM/DL Lipase 180 U/L Differential Diagnosis Differential diagnosis includes UTI, polynephritis, diverticulitis, partial small bowel obstruction, colitis, enteritis, abdominal pain NOS. Narrative Course The patient was initially evaluated by the previous physician, Dr. Juares. Please refer to the initial history, physical, diagnostic evaluation, and treatment modality plan. The patient was signed out at 12 AM with laboratory evaluation and CT of the abdomen and pelvis pending. UA reveals 25-49 WBCs, white count is minimally elevated at 1.1, creatinine minimally elevated at 1.1, otherwise labs are unremarkable. CT the abdomen and pelvis reveals a gallstone , but no acute CT findings. The patient's EMR was evaluated for the patient's last UA micro-results. The patient had Escherichia coli that was resistant to Bactrim and ampicillin. The patient states her physician placed her on Cipro, she finished a course, however, she continues to have symptoms. The patient will be placed back on Cipro as it was sensitive on her last micro-results, we' ll be prescribed Percocet for pain, but is advised to follow-up with her primary physician tomorrow. She will be provided a copy of her CT results and lab results at discharge. Diagnosis Primary Impression: UTI (urinary tract infection) Qualified Code: N30.00 - Acute cystitis without hematuria Additional Impression: LLQ abdominal pain Patient Instructions: General Instructions Additional Instruction: Medication as directed. Follow-up with her primary physician. Return if symptoms worsen or progress. Please provide the patient a copy of her CT results and lab results at discharge. Med/Other Pt SpecificInfo: Prescription(s) given Scripts Oxycodone-Acetaminophen (Percocet)5-325 mg Tab1 Tab PO Q6H PRN (PAIN) #12 TAB Ref 0 Prov:Fredy Weathers MD 03/06/17 Ciprofloxacin 500 Mg Isf108 Mg PO BID 7 Days Ref 0 Prov:Fredy Weathers MD 03/06/17 Disposition: 01 DISCHARGE HOME Condition: Stable Fredy Weathers MD March 06, 2017 00:14
[2017-03-06 00:19] LABS: SQUAMOUS EPITHELIAL CELL URINE > 8 /hpf (0-5); URINE COLOR YELLOW (YELLW/STRAW)
[2017-03-06 00:20] LABS: BACTERIA, URINE FEW /hpf; RBC, URINE 0-3 /hpf (0-3)
[2017-03-06 00:21] LABS: COMMENT (UR) CULTURE INDICATED; CULTURE IF INDICATED CULTURE INDICATED
[2017-03-06 00:21] LABS: CHLORIDE 104 MEQ/L (98-107); POTASSIUM 3.9 MEQ/L (3.5-5.1); SODIUM (NA) 142 MEQ/L (136-145)
[2017-03-06 00:25] LABS: ANION GAP 6 MEQ/L (5-15); BICARBONATE 31.6 MEQ/L (21.0-32.0); BLOOD UREA NITROGEN 11 MG/DL (7-18)
[2017-03-06 00:28] LABS: ALT (GPT) 29 U/L (10-53); AST (GOT) 23 U/L (15-37); GLOMERULAR FILTRATION RATE 48 ML/MIN (>89)
[2017-03-06 00:30] LABS: TOTAL BILIRUBIN ADULT 0.3 MG/DL (0.2-1.0)
[2017-03-06 00:31] LABS: ALKALINE PHOSPHATASE 131 U/L (45-117)
[2017-03-06 00:55] VITALS: BP 107/58; PULSE 88; RESP 14; O2SAT 92
[2017-03-06] MEDS ORDERED: IOHEXOL 350 MG/ML 10 ML VIAL (for RAD DIAG) IV ONE (01:23)
--- NOTE | 2017-03-06 01:28 | RADHPO ---
EXAM DATE/TIME: 03/06/2017 00:33 [facility] COMPARISON: No previous studies available for comparison. INDICATIONS : Bilateral upper and lower quadrant pain. IV CONTRAST: 100 cc Omnipaque 350 (iohexol) IV ORAL CONTRAST: No oral contrast ingested. RADIATION DOSE: 20.58 CTDIvol (mGy) MEDICAL HISTORY : Diverticulitis. Diabetes mellitus type 2. Hypertension.GERD. COPD. SURGICAL HISTORY : Appendectomy. Hysterectomy.Colon resection.Hernia repair. ENCOUNTER: Initial ACUITY: 2 days PAIN SCALE: 7/10 LOCATION: Bilateral lower quadrant Upper quadrant. TECHNIQUE: Volumetric scanning of the abdomen and pelvis was performed. Using automated exposure control and ad justment of the mA and/or kV according to patient size, radiation dose was kept as low as reasonably achievable to obtain optimal diagnostic quality images. FINDINGS: LOWER LUNGS: The visualized lower lungs are clear. LIVER: Homogeneous density without lesion. There is no dilation of the biliary tree. Small gallstone in the gallbladder fundus.. SPLEEN: Granulomatous calcifications. Normal size without suspicious mass PANCREAS: Within normal limits. KIDNEYS: Normal in size and shape. There is no mass, stone or hydronephrosis. ADRENAL GLANDS: Within normal limits. VASCULAR: There is no aortic aneurysm. BOWEL/MESENTERY: The stomach, small bowel, and colon demonstrate no acute abnormality. There is no free intraperitone al air or fluid. Duodenal diverticulum. Colonic diverticula. ABDOMINAL WALL: Within normal limits. RETROPERITONEUM: There is no lymphadenopathy. BLADDER: No wall thickening or mass. REPRODUCTIVE: Uterus surgically absent. No evidence of pelvic mass or free fluid. INGUINAL: There is no lymphadenopathy or hernia. MUSCULOSKELETAL: Within normal limits for patient age. CONCLUSION: Gallstone. No acute CT findings. Paul Dey MD on March 06, 2017 at 1:23 Board Certified Radiologist. This report was verified electronically.
[2017-03-06] MEDS ORDERED: CIPR500T2 PO (01:38)
[2017-03-06] MEDS ORDERED: PERC5TAB12 PO (01:38)
[2017-03-06 01:40] VITALS: BP 106/65; PULSE 78; RESP 14; O2SAT 93
[2017-03-06] MEDS ORDERED: CIPROFLOXACIN 400 MG PREMIX 200 ML IV ONE (01:45)
[2017-03-06] MEDS ORDERED: oxyCODONE/ACETAMINOPHEN 5 MG/325 MG TAB PO ONE (01:45)
[2017-03-06] MEDS ORDERED: MELA5TAB15 PO (02:31)
[2017-03-06] MEDS ORDERED: CENTCHW4 CHEW (02:32)
[2017-03-06 02:45] VITALS: BP 110/57; PULSE 77; RESP 14; O2SAT 92
[2017-03-06 03:03] VITALS: RESP 14
== END 2017-03-06 03:18 | disposition home or self-care (01) ==
LOC: PHED 22:27
DX: N39.0 Urinary tract infection, site not specified (principal); R10.32 Left lower quadrant pain; K80.80 Other cholelithiasis without obstruction; K57.92 Diverticulitis of intestine, part unspecified, without perforation or abscess without bleeding; J45.909 Unspecified asthma, uncomplicated; F41.9 Anxiety disorder, unspecified; J44.9 Chronic obstructive pulmonary disease, unspecified; K21.9 Gastro-esophageal reflux disease without esophagitis; I10 Essential (primary) hypertension
CPT/HCPCS: 74177; 80053; 81001; 83690; 85025; 87086; 96361; 96365; 96375; 99285; J0744; J1170; J2405; J7030; Q9967

== ENCOUNTER 2017-03-16 20:55 | Observation (INO) | payer MEDICARE, OTHER ==
[~2017-03-16 20:55] MED LIST changes: +CENTCHW4 CHEW; -CEPH-460 PO; +CIPR500T2 PO; -MELA3CAP PO; +MELA5TAB15 PO; -MULT-6 PO; +PERC5TAB12 PO
[2017-03-16 20:58] VITALS: BP 186/79; PULSE 91; RESP 18; TEMP 97.9; O2SAT 97
--- NOTE | 2017-03-16 22:27 | PD ---
HPI Chief Complaint: Abdominal Pain Time Seen by Provider: 22:17 Travel History International Travel<30 days: No Contact w/Intl Traveler<30days: No Traveled to known affect area: No History of Present Illness HPI 76-year-old female presents the emergency department with ongoing lower abdominal pain, as well as intermittent nausea and right upper abdominal discomfort after eating for several weeks. Patient states she was [place] [facility] and treated with ciprofloxacin for a urinary tract infection. Patient had a CT scan at that time showing a gallstone but no other significant acute findings. Patient had similar visit on February 14, and treated with antibiotics at that time as well without improvement. Patient does state nausea but no vomiting, and this is worse after eating. She has no fever but has had chills. She describes lower abdominal cramping and discomfort on the left side than the right. Patient states her pain currently as a 10 out of 10. Patient states he does have intermittent constipation followed by diarrhea. Patient denies dysuria specifically. Patient has no significant flank pain. She is allergic to codeine, Demerol, Levaquin, and trazodone. PFSH Past Medical History Arthritis: No Asthma: Yes Autoimmune Disease: No Blood Disorders: No Anxiety: Yes Depression: Yes Heart Rhythm Problems: No Cancer: No Cardiovascular Problems: Yes (hx of htn on meds) High Cholesterol: Yes Chemotherapy: No Chest Pain: No Congestive Heart Failure: No COPD: Yes Cerebrovascular Accident: No Diabetes: Yes Diminished Hearing: No Endocrine: Yes Gastrointestinal Disorders: Yes ("PROBLEMS DIGESTING MY FOOD") GERD: Yes Glaucoma: No Genitourinary: Yes (UTI,RETENTION) Headaches: Yes Hepatitis: No Hiatal Hernia: Yes (HERNIA REPAIR) Heparin Induced Thrombocytopen: No Hypertension: Yes Immune Disorder: No Implanted Vascular Access Dvce: Yes Kidney Stones: Yes Musculoskeletal: Yes Neurologic: Yes Psychiatric: Yes (DEPRESSION, BIPOLAR) Reproductive: No Respiratory: Yes (copd) Immunizations Current: No Migraines: No Myocardial Infarction: No Radiation Therapy: No Renal Failure: No Seizures: No Sickle Cell Disease: No Sleep Apnea: Yes (USES CPAP AT NIGHT) Thyroid Disease: No Ulcer: Yes PNEUMOCCOCAL Vaccine (Year): 1 Menopausal: Yes : 1 Para: 1 Past Surgical History Abdominal Surgery: Yes (COLOSTOMY REVERSAL,APPENDECTOMY,HERNIA REPAIR) AICD: No Appendectomy: Yes Arteriovenous Shunt: No Body Medical Devices: RIGHT ANKLE FX FIXED WITH PIN & SCREWS, BILATERAL BREAST IMPLANTS Cardiac Surgery: No Cholecystectomy: No Ear Surgery: No Endocrine Surgery: No Eye Surgery: No Genitourinary Surgery: No Gynecologic Surgery: Yes (PARTIAL HYSTERECTOMY) Hysterectomy: Yes Insulin Pump: No Joint Replacement: No Oral Surgery: No Pacemaker: No Thoracic Surgery: No Other Surgery: Yes (APPENDECTOMY, COLOSTOMY,HYSTERECTOMY, BREAST IMPLANTS , REVERSAL OF COLOSTOM) Social History Alcohol Use: No Tobacco Use: No (QUIT 10 YRS AGO SMOKED FOR 30+ YRS 1 PPD) Substance Use: No Allergies-Medications (Allergen,Severity, Reaction): Coded Allergies: Trazodone (Verified Allergy, Severe, HIVES, 03/16/17) Levaquin (Verified Allergy, Mild, Itching, 03/16/17) erythema and pruritis at infusion site Codeine (Verified Adverse Reaction, Severe, NAUSEA/VOMITING, 03/16/17) Demerol (Verified Adverse Reaction, Severe, NAUSEA/VOMITING, 03/16/17) Reported Meds & Prescriptions Reported Meds & Active Scripts Active Percocet (Oxycodone-Acetaminophen) 5-325 mg Tab 1 Tab PO Q6H PRN Ciprofloxacin (Ciprofloxacin HCl) 500 Mg Tab 500 Mg PO BID 7 Days Reported Centrum (Multiple Vitamins W/ Minerals) 1 Chew 1 Tab CHEW DAILY Melatonin 5 Mg Tab 6 Mg PO HS Mirtazapine 15 Mg Tab 15 Mg PO HS Montelukast (Montelukast Sodium) 10 Mg Tab 10 Mg PO HS Zocor (Simvastatin) 20 Mg Tab 20 Mg PO DAILY Metoprolol Tartrate 25 Mg Tab 25 Mg PO DAILY Temazepam 30 Mg Cap 30 Mg PO HS PRN Omeprazole 40 Mg Cap 40 Mg PO DAILY Furosemide 20 Mg Tab 20 Mg PO DAILY Glipizide 10 Mg Tab 10 Mg PO TIDAC Take 30 minutes before a meal Flovent Hfa 10.6 GM Inh (Fluticasone Propionate) 44 Mcg/Act Inh 2 Puff INH BID Use daily at the same time. Escitalopram (Escitalopram Oxalate) 20 Mg Tab 20 Mg PO DAILY Divalproex ER (Divalproex Sodium) 250 Mg Kiya 250 Mg PO DAILY Buspirone (Buspirone HCl) 30 Mg Tab 30 Mg PO TID Aripiprazole 30 Mg Tab 30 Mg PO DAILY Alprazolam 0.5 Mg Tab 0.5 Mg PO TID Albuterol Neb (Albuterol Sulfate) 1.25 Mg/3 Ml Neb 1.25 Mg NEB Q4HR NEB PRN Proair Hfa 8.5 GM Inh (Albuterol Sulfate) 90 Mcg/Act Aer 2 Puff INH Q4-6H PRN 108 mcg/actuation Review of Systems Except as stated in HPI: all other systems reviewed are Neg General / Constitutional: Positive: Chills, No: Fever Eyes: No: Visual changes HENT: No: Headaches Cardiovascular: No: Chest Pain or Discomfort Respiratory: No: Shortness of Breath Gastrointestinal: Positive: Nausea, Diarrhea, Abdominal Pain, Constipation, No : Vomiting Genitourinary: No: Urgency, Frequency, Dysuria Musculoskeletal: No: Pain Skin: No Rash Neurologic: No: Weakness Psychiatric: No: Depression Endocrine: No: Polydipsia Hematologic/Lymphatic: No: Easy Bruising Physical Exam Narrative GENERAL: Patient appears in no acute distress. SKIN: Warm and dry. Normal color. Normal turgor. HEAD: Atraumatic. Normocephalic. EYES: Pupils equal and round. No scleral icterus. No injection or drainage. ENT: No nasal bleeding or discharge. Mucous membranes pink and moist. Pharynx is clear. Airway is patent. NECK: Trachea midline. No JVD. Supple and nontender. CARDIOVASCULAR: Regular rate and rhythm. RESPIRATORY: No accessory muscle use. Mild diffuse wheezes throughout to auscultation. Breath sounds equal bilaterally. GASTROINTESTINAL: Abdomen soft, diffuse mild tenderness throughout the lower abdominal area, nondistended. Patient does have mild positive Denney's sign. Hepatic and splenic margins not palpable. No CVA tenderness. MUSCULOSKELETAL: Extremities without clubbing, cyanosis, or edema. No obvious deformities. NEUROLOGICAL: Awake and alert. No obvious cranial nerve deficits. Motor grossly within normal limits. Five out of 5 muscle strength in the arms and legs. Normal speech. PSYCHIATRIC: Appropriate mood and affect; insight and judgment normal. Data Data Last Documented VS Vital Signs Date Time Temp Pulse Resp B/P Pulse Ox O2 Delivery O2 Flow Rate FiO2 03/16/17 20:58 97.9 91 18 186/79 97 Room Air Orders Complete Blood Count With Diff (03/16/17 22:27) Comprehensive Metabolic Panel (03/16/17 22:27) Lipase (03/16/17 22:27) Lactic Acid (03/16/17 22:27) Prothrombin Time / Inr (Pt) (03/16/17 22:27) Act Partial Throm Time (Ptt) (03/16/17 22:27) Urinalysis - C+S If Indicated (03/16/17 22:27) Us Abdomen Gallbladder (03/16/17 ) Iv Access Insert/Monitor (03/16/17 22:27) Ecg Monitoring (03/16/17 22:) Oximetry (03/16/17 22:27) NPO (03/16/17 22:27) Ondansetron Inj (Zofran Inj) (03/16/17 22:30) Sodium Chloride 0.9% Flush (Ns Flush) (03/16/17 22:30) Electrocardiogram (03/16/17 22:27) Chest, Single Ap (03/16/17 22:27) Hydromorphone Pf Inj (Dilaudid Pf Inj) (03/16/17 22:30) Sodium Chlorid 0.9% 500 Ml Inj (Ns 500 M (03/16/17 22:30) MDM Medical Decision Making Medical Screen Exam Complete: Yes Emergency Medical Condition: Yes Medical Record Reviewed: Yes Differential Diagnosis Atypical abdominal pain. Recurrent cystitis. Chronic cystitis. Gallbladder disease. Constipation. Narrative Course Patient is medically stable at time of exam. Labs ordered including CBC, CMP, lactic acid, lipase, urinalysis. EKG is ordered as well as a chest x-ray. Patient is discussed with Dr. Guzman who recommends ultrasound rather than CT at this time. Gallbladder ultrasound is ordered. IV access is obtained patient is given 4 mg Zofran IV and 1 mg Dilantin IV. 2300 hrs., care the patient is assumed by Dr. Guzman who will make the final diagnosis and disposition for the patient. Condition: Stable Rolando Valenzuela Mar 16, 2017 22:27 Rolando Valenzuela Mar 16, 2017 22:27
[2017-03-16] MEDS ORDERED: SODIUM CHLORIDE 0.9% FLUSH 10 ML FLUSH IV FLUSH PRN (22:30)
[2017-03-16] MEDS ORDERED: HYDROmorphone HCL PF 1 MG/ML VIAL IVS ONE (22:30)
[2017-03-16] MEDS ORDERED: SODIUM CHLORID 0.9% 500 ML INJ 500 ML IV ONE (22:30)
[2017-03-16] MEDS ORDERED: ONDANSETRON HCL 4 MG/2 ML VIAL IVP ONE (22:30)
--- NOTE | 2017-03-16 23:05 | RADRPT ---
EXAM DATE/TIME: 03/16/2017 22:42 [facility] COMPARISON: No previous studies available for comparison. INDICATIONS : Patient has UTI and has been on antibiotics twice; short of breath. MEDICAL HISTORY : Chronic obstructive pulmonary disease. Hypertension Diverticulitis. gerd SURGICAL HISTORY : Appendectomy. Cholecystectomy. Hysterectomy. hernia repair ENCOUNTER: Initial ACUITY: 3 days PAIN SCORE: 4/10 LOCATION: Bilateral upper chest FINDINGS: There is left basilar airspace disease most characteristic of pneumonia. Right lung clear. No signifi cant effusion. No pneumothorax. CONCLUSION: 1. Left basilar airspace disease. Primary differential diagnosis is pneumonia. Jeramie Treadwell MD on March 16, 2017 at 23:02 Board Certified Radiologist. This report was verified electronically.
[2017-03-16] MEDS ORDERED: cefTRIAXone INJ 1,000 MG in SODIUM CHLORIDE 0.9% INJ 100 ML IV ONE (23:15)
[2017-03-16] MEDS ORDERED: AZITHROMYCIN INJ 500 MG in SODIUM CHLOR 0.9% 250 ML INJ 250 ML IV ONE (23:15)
--- NOTE | 2017-03-16 23:35 | RADRPT ---
EXAM DATE/TIME: 03/16/2017 22:53 [facility] COMPARISON: CT ABDOMEN & PELVIS W CONTRAST, March 06, 2017, 0:33. INDICATIONS : Right upper quadrant pain. MEDICAL HISTORY : Hypercholesterolemia. Gastroesophageal reflux disease. Chronic obstructive pulmonary disease. Hyperte nsion. Asthma. Sleep apnea. Ulcer. . Kidney stones. Scoliosis. Diabetes. Anxiety. Depression . Bipolar disorder. Measles. SURGICAL HISTORY : Colostomy. Appendectomy. Hiatal hernia repair. Partial hysterectomy. Breast augmentation. Right ank le surgery. ENCOUNTER: Initial ACUITY: 1 day PAIN SCORE: 7/10 LOCATION: Right upper quadrant MEASUREMENTS: LIVER: 17.1 cm length COMMON DUCT: 7 mm RIGHT KIDNEY: 11.4 x 4.9 x 4.7 cm FINDINGS: LIVER: The liver is prominent measuring up to 17.1 cm. The liver appears increased in echogenicity with no f ocal mass or ductal dilatation.. COMMON DUCT: No intraluminal mass or stone visualized. GALLBLADDER: The gallbladder is normal in size and wall thickness. There is a single echogenic gallstone measuring approximately 1.3 cm in greatest diameter with posterior shadowing. This appears mobile. There is no pericholecystic fluid.PANCREAS: The visualized portions are within normal limits. RIGHT KIDNEY: No evidence of hydronephrosis, stone, or mass. CONCLUSION: 1. Cholelithiasis with single echogenic mobile gallstones and no gallbladder wall thickening or bilia ry obstruction. 2. Prominent liver with findings consistent with fatty infiltration. Tanner Madrid MD on March 16, 2017 at 23:29 Board Certified Radiologist. This report was verified electronically.
[2017-03-17] VITALS (7 sets, daily range): BP systolic 90–167; BP diastolic 55–84; PULSE 67–89; RESP 16–20; TEMP 98–98.4; O2SAT 92–97
[2017-03-17 00:06] LABS: AUTOMATED NEUTROPHIL # 6.5 TH/MM3 (1.8-7.7); BASOPHIL # 0.1 TH/MM3 (0-0.2); BASOPHIL % 0.5 % (0.0-2.0); EOSINOPHIL # 0.1 TH/MM3 (0-0.4); EOSINOPHIL % 0.5 % (0.0-4.0); HEMATOCRIT 39.3 % (35.0-46.0); HEMO FLAGS DIFF FINAL; LYMPH % 28.5 % (9.0-44.0); MEAN CELL VOLUME 93.9 FL (80.0-100.0); MEAN CORPUSCULAR HEMOGLOBIN 30.8 PG (27.0-34.0); MEAN CORPUSCULAR HGB CONC 32.8 % (32.0-36.0); MONO % 9.1 % (0.0-8.0); NEUT % 61.4 % (16.0-70.0); PLATELET COUNT 252 TH/MM3 (150-450); RED BLOOD COUNT 4.18 MIL/MM3 (4.00-5.30); RED CELL DISTRIBUTION WIDTH 15.6 % (11.6-17.2); WHITE BLOOD COUNT 10.5 TH/MM3 (4.0-11.0)
[2017-03-17 00:07] LABS: ALT (GPT) 30 U/L (10-53)
[2017-03-17 00:09] LABS: ALKALINE PHOSPHATASE 127 U/L (45-117); TOTAL BILIRUBIN ADULT 0.3 MG/DL (0.2-1.0)
[2017-03-17 00:11] LABS: APTT (PATIENT) 24.7 SEC (24.3-30.1); INTERNATIONAL NORMALIZED RATIO 0.9 RATIO; PROTHROMBIN TIME - PATIENT 10.1 SEC (9.8-11.6)
[2017-03-17 00:32] LABS: ANION GAP 10 MEQ/L (5-15); AST (GOT) 32 U/L (15-37); BICARBONATE 26.6 MEQ/L (21.0-32.0); BLOOD UREA NITROGEN 12 MG/DL (7-18); CHLORIDE 104 MEQ/L (98-107); GLOMERULAR FILTRATION RATE 52 ML/MIN (>89); SODIUM (NA) 141 MEQ/L (136-145)
[2017-03-17 00:36] LABS: POTASSIUM 4.4 MEQ/L (3.5-5.1)
--- NOTE | 2017-03-17 00:57 | PD ---
Physical Exam Narrative I, Dr. Guzman, have reviewed the advance practice practitioner's documentation and am in agreement, met with the patient face to face, made the diagnosis, and the medical decision making was done by me. *My assessment and Findings: Patient is a 76-year-old female comes in complaining of abdominal pain. She has been here multiple times in the past for this but nothing is been found to cause the pain. She also reports history of cough and some back pain. She says she had a lobectomy performed 3-4 weeks ago for a lung cancer. She denies any fever or chills. She says she has not been doing very much since the surgery, just laying around. Exam shows some tenderness to the upper abdomen on palpation. Lungs are clear to auscultation. Data Data Last Documented VS Vital Signs Date Time Temp Pulse Resp B/P Pulse Ox O2 Delivery O2 Flow Rate FiO2 03/16/17 23:13 Room Air 03/16/17 20:58 97.9 91 18 186/79 97 Orders Complete Blood Count With Diff (03/16/17 22:27) Comprehensive Metabolic Panel (03/16/17 22:27) Lipase (03/16/17 22:27) Lactic Acid (03/16/17 22:27) Prothrombin Time / Inr (Pt) (03/16/17 22:27) Act Partial Throm Time (Ptt) (03/16/17 22:27) Urinalysis - C+S If Indicated (03/16/17 22:27) Us Abdomen Gallbladder (03/16/17 ) Iv Access Insert/Monitor (03/16/17 22:27) Ecg Monitoring (03/16/17 22:27) Oximetry (03/16/17 22:27) NPO (03/16/17 22:27) Ondansetron Inj (Zofran Inj) (03/16/17 22:30) Sodium Chloride 0.9% Flush (Ns Flush) (03/16/17 22:30) Electrocardiogram (03/16/17 22:27) Chest, Single Ap (03/16/17 22:27) Hydromorphone Pf Inj (Dilaudid Pf Inj) (03/16/17 22:30) Sodium Chlorid 0.9% 500 Ml Inj (Ns 500 M (03/16/17 22:30) Ceftriaxone Inj (Rocephin Inj) (03/16/17 23:15) Azithromycin Inj (Zithromax Inj) (03/16/17 23:15) Sodium Chlor 0.9% 1000 Ml Inj (Ns 1000 M (03/17/17 01:00) Admit Order (Ed Use Only) (03/17/17 ) Labs Laboratory Tests Test 03/16/17 22:43 White Blood Count 10.5 TH/MM3 Red Blood Count 4.18 MIL/MM3 Hemoglobin 12.9 GM/DL Hematocrit 39.3 % Mean Corpuscular Volume 93.9 FL Mean Corpuscular Hemoglobin 30.8 PG Mean Corpuscular Hemoglobin 32.8 % Concent Red Cell Distribution Width 15.6 % Platelet Count 252 TH/MM3 Mean Platelet Volume 8.0 FL Neutrophils (%) (Auto) 61.4 % Lymphocytes (%) (Auto) 28.5 % Monocytes (%) (Auto) 9.1 % Eosinophils (%) (Auto) 0.5 % Basophils (%) (Auto) 0.5 % Neutrophils # (Auto) 6.5 TH/MM3 Lymphocytes # (Auto) 3.0 TH/MM3 Monocytes # (Auto) 1.0 TH/MM3 Eosinophils # (Auto) 0.1 TH/MM3 Basophils # (Auto) 0.1 TH/MM3 CBC Comment DIFF FINAL Differential Comment Prothrombin Time 10.1 SEC Prothromb Time International 0.9 RATIO Ratio Activated Partial 24.7 SEC Thromboplast Time Sodium Level 141 MEQ/L Potassium Level 4.4 MEQ/L Chloride Level 104 MEQ/L Carbon Dioxide Level 26.6 MEQ/L Anion Gap 10 MEQ/L Blood Urea Nitrogen 12 MG/DL Creatinine 1.04 MG/DL Estimat Glomerular Filtration 52 ML/MIN Rate Random Glucose 135 MG/DL Lactic Acid Level 3.9 mmol/L Calcium Level 9.1 MG/DL Total Bilirubin 0.3 MG/DL Aspartate Amino Transf 32 U/L (AST/SGOT) Alanine Aminotransferase 30 U/L (ALT/SGPT) Alkaline Phosphatase 127 U/L Total Protein 7.2 GM/DL Albumin 3.4 GM/DL Lipase 153 U/L [facility] Supervised Visit with SCHUYLER: Yes Narrative Course Chest x-ray shows a left-sided pneumonia. Lactic acid is elevated at 3.9. Patient given antibiotics as well as IV fluids. Other test results are unremarkable. Patient will be admitted for further management. Diagnosis Primary Impression: Pneumonia Qualified Code: J18.1 - Pneumonia of left lower lobe due to infectious organism Admitting Information Admitting Physician Requests: Observation Condition: Stable Lorrie Guzman MD Mar 17, 2017 00:57
[2017-03-17] MEDS ORDERED: SODIUM CHLOR 0.9% 1000 ML INJ 1,000 ML IV ONE (01:00)
[2017-03-17] MEDS ORDERED: LACTULOSE SYRUP 20 GM/30 ML CUP PO PRN (01:30)
[2017-03-17] MEDS ORDERED: DEXTROSE 50% IN WATER 50 ML VIAL(D50) IV PRN (01:30)
[2017-03-17] MEDS ORDERED: BISACODYL 10 MG SUPP RECTAL PRN (01:30)
[2017-03-17] MEDS ORDERED: TEMAZEPAM 15 MG CAP PO PRN (01:30)
[2017-03-17] MEDS ORDERED: SODIUM CHLORIDE 0.9% FLUSH 10 ML FLUSH IV FLUSH PRN (01:30)
[2017-03-17] MEDS ORDERED: SENNOSIDES 8.6 MG TAB PO PRN (01:30)
[2017-03-17] MEDS ORDERED: ACETAMINOPHEN 325 MG TAB PO PRN (01:30)
[2017-03-17] MEDS ORDERED: GLUCAGON 1 MG/ML VIAL OTHER PRN (01:30)
[2017-03-17] MEDS ORDERED: ONDANSETRON HCL 4 MG/2 ML VIAL IVP PRN (01:30)
[2017-03-17] MEDS ORDERED: MAGNESIUM HYDROXIDE SUSP 30 ML CUP PO PRN (01:30)
[2017-03-17 01:41] LABS: BACTERIA, URINE RARE /hpf; BLOOD, URINE NEG (NEG); COMMENT (UR) CULT NOT INDICATED; CULTURE IF INDICATED CULT NOT INDICATED; GLUCOSE,URINE NEG (NEG); KETONE, URINE NEG (NEG); MUCUS URINE FEW /lpf (OCC); NITRITE,URINE NEG (NEG); PH, URINE 6.5 (5.0-8.5); SQUAMOUS EPITHELIAL CELL URINE 2 /hpf (0-5); URINE COLOR YELLOW (YELLW/STRAW)
[2017-03-17] MEDS: SODIUM CHLOR 0.9% 1000 ML INJ 1,000 ML IV SCH ×3 (02:08→22:09)
[2017-03-17] MEDS: MORPHINE SULFATE 4 MG/ML INJ IV PRN ×3 (02:37→22:10)
[2017-03-17] MEDS ORDERED: RESP: ALBUTEROL 2.5 MG/IPRATROPIUM 0.5 MG NEB (PRN) NEB (04:15)
--- NOTE | 2017-03-17 04:28 | HHI.HP ---
HPI Service [facility] Primary Care Physician KELLI Zhang Admission Diagnosis Pneumonia Diagnoses: (1) Abdominal pain Diagnosis: Principal (2) PNA (pneumonia) Diagnosis: Principal (3) Renal insufficiency Diagnosis: Principal (4) Lactic acidosis Diagnosis: Principal (5) DM (diabetes mellitus) Diagnosis: Principal Travel History International Travel<30 Days: No Contact w/Intl Traveler <30 Da: No Traveled to Known Affected Are: No History of Present Illness This is a 76-year-old female with a PMH of Asthma, Anxiety, Depression, Bipolar Disorder, HTN, Hyperlipidemia and DM who presented to the ER with complaints of abdominal pain x2 wks, now w/ worsening abdominal pain and associated nausea, no vomiting. Denies fever, chills or diarrhea. Seen in [place] ER on w/ similar complaints, found to have UTI, d/c'd w/ Cipro and Percocet. States symptoms have not improved. On arrival, BP 186/79, HR 91, O2 sat 97% on RA, Afebrile. CBC unremarkable. Creatinine 1.04, previous and 1.10 on . Lactic Acid 3.9. INR 0.9. UA with small LE. CXR with left basilar airspace disease, likely pneumonia. Gallbladder US cholelithiasis, single echogenic gallstone, no gallbladder wall thickening or obstruction. S/p Rocephin/Zithro in ER. Review of Systems Except as stated in HPI: all other systems reviewed are Neg ROS: 14 point review of systems otherwise negative. Past Family Social History Past Medical History PMH: Asthma, Anxiety, Depression, Bipolar Disorder, HTN, Hyperlipidemia and DM Past Surgical History PAST SURGICAL HISTORY: Colostomy with Reversal, Appendectomy am a Hernia Repair , Right Ankle Surgery, Bilateral Breast Implants, Partial Hysterectomy Allergies: Coded Allergies: Trazodone (Verified Allergy, Severe, HIVES, 03/16/17) Levaquin (Verified Allergy, Mild, Itching, 03/16/17) erythema and pruritis at infusion site Codeine (Verified Adverse Reaction, Severe, NAUSEA/VOMITING, 03/16/17) Demerol (Verified Adverse Reaction, Severe, NAUSEA/VOMITING, 03/16/17) Family History PAST FAMILY HISTORY: Reviewed. No h/o DM or CAD Social History PAST SOCIAL HISTORY: Negative for alcohol, tobacco or drugs. Physical Exam Vital Signs Vital Signs Date Time Temp Pulse Resp B/P Pulse Ox O2 Delivery O2 Flow Rate FiO2 03/17/17 02:40 98.0 87 18 167/67 94 03/17/17 01:55 98.2 86 16 149/69 95 03/16/17 23:13 Room Air 03/16/17 20:58 97.9 91 18 186/79 97 Room Air Physical Exam PE: GENERAL: Elderly female in no acute distress. HEENT: PERRLA, EOMI. No scleral icterus or conjunctival pallor. No lid lag or facial droop. CARDIOVASCULAR: Regular rate and rhythm. No obvious murmurs to auscultation. No chest tenderness to palpation. RESPIRATORY: No obvious rhonchi or wheezing. Clear to auscultation. Breath sounds equal bilaterally. GASTROINTESTINAL: Abdomen soft, mild generalized tenderness to palpation, nondistended. BS normal. MUSCULOSKELETAL: Extremities without clubbing, cyanosis, or edema. No obvious deformities. NEUROLOGICAL: Awake, alert and oriented x4. No focal neurologic deficits. Moving both upper and lower extremities spontaneously. Laboratory Laboratory Tests Test 03/16/17 03/16/17 22:43 23:00 White Blood Count 10.5 Red Blood Count 4.18 Hemoglobin 12.9 Hematocrit 39.3 Mean Corpuscular Volume 93.9 Mean Corpuscular Hemoglobin 30.8 Mean Corpuscular Hemoglobin 32.8 Concent Red Cell Distribution Width 15.6 Platelet Count 252 Mean Platelet Volume 8.0 Neutrophils (%) (Auto) 61.4 Lymphocytes (%) (Auto) 28.5 Monocytes (%) (Auto) 9.1 Eosinophils (%) (Auto) 0.5 Basophils (%) (Auto) 0.5 Neutrophils # (Auto) 6.5 Lymphocytes # (Auto) 3.0 Monocytes # (Auto) 1.0 Eosinophils # (Auto) 0.1 Basophils # (Auto) 0.1 CBC Comment DIFF FINAL Differential Comment Prothrombin Time 10.1 Prothromb Time International 0.9 Ratio Activated Partial 24.7 Thromboplast Time Sodium Level 141 Potassium Level 4.4 Chloride Level 104 Carbon Dioxide Level 26.6 Anion Gap 10 Blood Urea Nitrogen 12 Creatinine 1.04 Estimat Glomerular Filtration 52 Rate Random Glucose 135 Lactic Acid Level 3.9 Calcium Level 9.1 Total Bilirubin 0.3 Aspartate Amino Transf 32 (AST/SGOT) Alanine Aminotransferase 30 (ALT/SGPT) Alkaline Phosphatase 127 Total Protein 7.2 Albumin 3.4 Lipase 153 Urine Color YELLOW Urine Turbidity CLEAR Urine pH 6.5 Urine Specific [place] 1.011 Urine Protein NEG Urine Glucose (UA) NEG Urine Ketones NEG Urine Occult Blood NEG Urine Nitrite NEG Urine Bilirubin NEG Urine Urobilinogen LESS THAN 2.0 Urine Leukocyte Esterase SMALL Urine RBC LESS THAN 1 Urine WBC 2 Urine Squamous Epithelial 2 Cells Urine Bacteria RARE Urine Mucus FEW Microscopic Urinalysis Comment CULT NOT INDICATED Result Diagram: 03/16/17224203/16/172242 Assessment and Plan Problem List: (1) Abdominal pain ICD Code: R10.9 Status: Acute (2) PNA (pneumonia) ICD Code: J18.9 Status: Acute (3) Renal insufficiency ICD Code: N28.9 Status: Acute (4) Lactic acidosis ICD Code: E87.2 Status: Acute (5) DM (diabetes mellitus) ICD Code: E11.9 Status: Acute Assessment and Plan /A/P: 1. Abdominal Pain: Unclear etiology, recent CT Abd/Pelvis 03/06/17 for similar symptoms w/ no acute abnormality noted, images reviewed by me. Gallbladder US w/ cholelithiasis, no gallbladder wall thickening or biliary obstruction. LFTs normal. UA with mild LE. Analgesics/antiemetics. 2. PNA: CXR w/ left basilar airspace disease, likely pneumonia, images reviewed by me. S/p Rocephin/Zithro in ER, will continue w/ IV Abx. DuoNeb prn. 3. Lactic Acidosis: Lactate 3.9, likely secondary to dehydration rather than sepsis. IVF, recheck lactate in am 4. Renal Insufficiency: Chronic. Creatinine 1.04, previously 1.10 on . IVF, repeat labs in am 5. DM: Sliding scale w/ Accu-Checks. 6. DVT Prophylaxis: SCD/teds. 7. Social work for DC planning as needed. 8. Case discussed with ER physician at length Nathalia Tsai MD Mar 17, 2017 04:28
[2017-03-17] MEDS: INSULIN ASPART SUPPLEMENTAL SCALE SQ SCH ×4 (06:15→21:00)
[2017-03-17] MEDS: PANTOPRAZOLE SOD 40 MG DELAYED RELEASE TAB PO SCH (09:02)
[2017-03-17] MEDS: DIVALPROEX SODIUM E.R. 250 MG TAB PO SCH (09:02)
[2017-03-17] MEDS: busPIRone HCL 10 MG TAB PO SCH ×3 (09:02→18:14)
[2017-03-17] MEDS: ESCITALOPRAM OXALATE 20 MG TAB PO SCH (09:03)
[2017-03-17] MEDS: FUROSEMIDE 20 MG TAB PO SCH (09:03)
[2017-03-17] MEDS: ALPRAZolam 0.5 MG TAB PO SCH ×3 (09:03→18:14)
[2017-03-17] MEDS: DOCUSATE SODIUM 50 MG/SENNA 8.6 MG TAB PO SCH ×2 (09:03→21:00)
[2017-03-17] MEDS: glipiZIDE 10 MG TAB PO SCH ×3 (09:03→18:14)
[2017-03-17] MEDS: METOPROLOL TARTRATE 25 MG TAB PO SCH (09:03)
[2017-03-17] MEDS: MULTIVITAMINS/MINERALS THERAPEUTIC TAB PO SCH (09:03)
[2017-03-17] MEDS: PRAVASTATIN SOD 40 MG TAB PO SCH (09:04)
[2017-03-17] MEDS: SODIUM CHLORIDE 0.9% FLUSH 10 ML FLUSH IV FLUSH SCH ×2 (09:06→21:00)
[2017-03-17] MEDS: ARIPiprazole 30 MG TAB PO SCH (09:09)
--- NOTE | 2017-03-17 10:59 | HHI.PR ---
Subjective Remarks Follow up for abdominal pain, pneumonia, UTI. The patient reports continued lower abdominal pain and points to the site of her rash at the abdominal fold. She states she has been using topical powder at home but it hasn't improved. The patient denies any nausea/vomiting. She has been tolerating oral intake. The patient also explains that she is always either having diarrhea or constipation. Currently she feels constipated, only had a small bowel movement yesterday, and she would like medication to help her have a decent BM. The patient does also report a cough occasionally productive of yellow sputum. Denies fevers or chills overnight. Denies chest pain. She reports shortness of breath is at baseline secondary to her COPD. She uses nebulizers at home twice a day. She does not wear oxygen. She has no other medical complaints at this time. Objective Vitals Vital Signs Date Time Temp Pulse Resp B/P Pulse Ox O2 Delivery O2 Flow Rate FiO2 03/17/17 08:02 98.4 82 18 139/82 93 03/17/17 02:40 98.0 87 18 167/67 94 03/17/17 01:55 98.2 86 16 149/69 95 03/16/17 23:13 Room Air 03/16/17 20:58 97.9 91 18 186/79 97 Room Air I/O 03/16/17 03/16/17 03/16/17 03/17/17 03/17/17 03/17/17 07:00 15:00 23:00 07:00 15:00 23:00 Intake Total 450 ml Balance 450 ml Intake Oral 450 ml Result Diagram: 03/16/17 22403/16/17 224 Imaging Last Impressions Chest X-Ray 03/16/172226 Signed Impressions: Service Date/Time: Thursday, March 16, 2017 22:42 - CONCLUSION: 1. Left basilar airspace disease. Primary differential diagnosis is pneumonia. Jeramie Treadwell MD Gall Bladder Ultrasound 03/16/17 0000 Signed Impressions: Service Date/Time: Thursday, March 16, 2017 22:53 - CONCLUSION: 1. Cholelithiasis with single echogenic mobile gallstones and no gallbladder wall thickening or biliary obstruction. 2. Prominent liver with findings consistent with fatty infiltration. Tanner Madrid MD Objective Remarks GENERAL: Well-nourished, well-developed elderly female patient in [place]. SKIN: Warm and dry. Erythematous plaque throughout abdominal fold, worse on the right, with satellite maculopapular lesions. HEENT: Normocephalic. Atraumatic. Pupils equal and round. No scleral icterus. No injection or drainage. Mucous membranes pink and moist. NECK: Supple. Trachea midline. CARDIOVASCULAR: Regular rate and rhythm. S1, S2 noted. No murmur appreciated. RESPIRATORY: No accessory muscle use. Clear to auscultation. Breath sounds equal bilaterally. GASTROINTESTINAL: Abdomen soft, non-tender, nondistended. Normoactive bowel sounds x4. MUSCULOSKELETAL: No obvious deformities. Extremities without clubbing, cyanosis , or edema. NEUROLOGICAL: Awake and alert. No obvious cranial nerve deficits. Motor grossly within normal limits. Normal speech. PSYCHIATRIC: Appropriate mood and affect; insight and judgment normal. Medications and IVs Current Medications Medications (Trade) Dose Ordered Sig/Teena Route Start Time Stop Time Status Last Admin (NS Flush) 2 ml UNSCH PRN IV FLUSH 03/16/17 22:30 (D50w (Vial) Inj) 50 ml UNSCH PRN IV 03/17/17 01:30 Glucagon 1 mg 1 mg UNSCH PRN OTHER 03/17/17 01:30 (NS 1000 ml Inj) 1,000 ml @ 100 mls/hr Q10H IV 03/17/17 01:28 03/17/17 02:08 (NS Flush) 2 ml UNSCH PRN IV FLUSH 03/17/17 01:30 (NS Flush) 2 ml BID IV FLUSH 03/17/17 09:00 03/17/17 09:06 (Zofran Inj) 4 mg Q6H PRN IVP 03/17/17 01:30 (Tylenol) 650 mg Q6H PRN PO 03/17/17 01:30 (Morphine Inj) 2 mg Q3H PRN IV 03/17/17 01:30 03/17/17 09:06 (Nano-Colace) 1 tab BID PO 03/17/17 09:00 03/17/17 09:03 (Milk Of Magnesia Liq) 30 ml Q12H PRN PO 03/17/17 01:30 (Senokot) 17.2 mg Q12H PRN PO 03/17/17 01:30 (Dulcolax Supp) 10 mg DAILY PRN RECTAL 03/17/17 01:30 Lactulose 30 ml 30 ml DAILY PRN PO 03/17/17 01:30 Ceftriaxone Sodium 1000 mg/ Sodium Chloride 100 ml @ 200 mls/hr Q24H IV 03/17/17 23:00 (Zithromax Inj/ NS 250 ml Inj) 250 ml @ 250 mls/hr Q24H IV 03/17/17 23:00 (Xanax) 0.5 mg TID PO 03/17/17 09:00 03/17/17 09:03 (Abilify) 30 mg DAILY PO 03/17/17 09:00 03/17/17 09:09 (Buspar) 30 mg TID PO 03/17/17 09:00 03/17/17 09:02 (Depakote Er) 250 mg DAILY PO 03/17/17 09:00 03/17/17 09:02 (Lexapro) 20 mg DAILY PO 03/17/17 09:00 03/17/17 09:03 (Lasix) 20 mg DAILY PO 03/17/17 09:00 03/17/17 09:03 (Glucotrol) 10 mg TIDAC PO 03/17/17 08:00 03/17/17 09:03 (Melatonin) 5 mg HS PO 03/17/17 21:00 (Lopressor) 25 mg DAILY PO 03/17/17 09:00 03/17/17 09:03 (Remeron) 15 mg HS PO 03/17/17 21:00 (Singulair) 10 mg HS PO 03/17/17 21:00 (Theragran M Tab) 1 tab DAILY PO 03/17/17 09:00 03/17/17 09:03 (Restoril) 30 mg HS PRN PO 03/17/17 01:30 (Protonix) 40 mg DAILY PO 03/17/17 09:00 03/17/17 09:02 (Pravachol) 40 mg DAILY PO 03/17/17 09:00 03/17/17 09:04 A/P Problem List: (1) Abdominal pain ICD Code: R10.9 Status: Acute (2) PNA (pneumonia) ICD Code: J18.9 Status: Acute (3) Renal insufficiency ICD Code: N28.9 Status: Acute (4) Lactic acidosis ICD Code: E87.2 Status: Acute (5) DM (diabetes mellitus) ICD Code: E11.9 Status: Acute Assessment and Plan 76-year-old female with a PMH of Asthma, Anxiety, Depression, Bipolar Disorder, HTN, Hyperlipidemia and DM who presented to the ER with complaints of abdominal pain x2 wks, now w/ worsening abdominal pain and associated nausea, no vomiting. Abdominal Pain: Unclear etiology, suspect secondary to constipation vs rash. recent CT Abd/Pelvis 03/06/17 for similar symptoms w/ no acute abnormality noted , images reviewed by me. Gallbladder US 03/16/17 w/ cholelithiasis, no gallbladder wall thickening or biliary obstruction. LFTs normal. UA with mild LE, on abx however recent urine culture with mixed doe. Analgesics/ antiemetics. Pain possibly related to rash, started on Nystatin powder. Also possibly related to constipation, will start on bowel regimen. Community Acquired Pneumonia: CXR w/ left basilar airspace disease, likely pneumonia, images reviewed by me. Continue antibiotics with IV Rocephin/ Zithro. DuoNeb q12h teena and prn. Lactic Acidosis: Lactate 3.9, likely secondary to dehydration rather than sepsis. Given IVF. Repeat lactate 1.6. Resolved. Renal Insufficiency: Chronic. Creatinine 1.04, previously 1.10 on 03/05/17. Given IVF, repeat labs. DM: Monitor Accu-checks, cover with SSI. Candidal Intertrigo: throughout abdominal fold. Start on Nystatin powder q8h. Monitor for improvement. DVT Prophylaxis: SCD/teds. Discharge Planning Not yet ready for discharge, pending further clinical improvement. PT to evaluate. Patient lives with her daughter. Sherice Olivera PA-C Mar 17, 2017 10:59
[2017-03-17] MEDS ORDERED: RESP: ALBUTEROL 2.5 MG/IPRATROPIUM 0.5 MG NEB (SCH) NEB ONE (11:00)
[2017-03-17] MEDS ORDERED: MAGNESIUM HYDROXIDE SUSP 30 ML CUP PO ONE (11:00)
[2017-03-17] MEDS: NYSTATIN 100,000 U/GM PWD 15 GM BTL TOPICAL SCH ×2 (15:51→22:10)
[2017-03-17] MEDS: RESP: ALBUTEROL 2.5 MG/IPRATROPIUM 0.5 MG NEB (SCH) NEB (19:24)
[2017-03-17] MEDS ORDERED: MONTELUKAST SODIUM 10 MG TAB PO SCH (21:00)
[2017-03-17] MEDS ORDERED: MIRTAZAPINE 15 MG TAB PO SCH (21:00)
[2017-03-17] MEDS ORDERED: MELATONIN 5 MG TAB PO SCH (21:00)
[2017-03-17] MEDS ORDERED: cefTRIAXone INJ 1,000 MG in SODIUM CHLORIDE 0.9% INJ 100 ML IV SCH (23:00)
[2017-03-17] MEDS ORDERED: AZITHROMYCIN INJ 500 MG in SODIUM CHLOR 0.9% 250 ML INJ 250 ML IV SCH (23:00)
[2017-03-18 00:04] VITALS: BP 138/65; PULSE 90; RESP 18; TEMP 98; O2SAT 93
[2017-03-18 03:45] VITALS: BP 119/67; PULSE 85; RESP 18; TEMP 98.4; O2SAT 93
[2017-03-18] MEDS: NYSTATIN 100,000 U/GM PWD 15 GM BTL TOPICAL SCH (05:55)
[2017-03-18] MEDS: INSULIN ASPART SUPPLEMENTAL SCALE SQ SCH (06:02)
[2017-03-18] MEDS: RESP: ALBUTEROL 2.5 MG/IPRATROPIUM 0.5 MG NEB (SCH) NEB (07:19)
[2017-03-18 07:22] VITALS: O2SAT 95
[2017-03-18 07:57] LABS: AUTOMATED NEUTROPHIL # 4.3 TH/MM3 (1.8-7.7); BASOPHIL # 0.1 TH/MM3 (0-0.2); BASOPHIL % 0.8 % (0.0-2.0); EOSINOPHIL # 0.2 TH/MM3 (0-0.4); EOSINOPHIL % 2.4 % (0.0-4.0); HEMATOCRIT 34.2 % (35.0-46.0); HEMO FLAGS DIFF FINAL; LYMPH % 28.1 % (9.0-44.0); LYMPHOCYTE # 2.1 TH/MM3 (1.0-4.8); MEAN CELL VOLUME 95.1 FL (80.0-100.0); MEAN CORPUSCULAR HEMOGLOBIN 31.2 PG (27.0-34.0); MEAN CORPUSCULAR HGB CONC 32.8 % (32.0-36.0); MONO % 12.3 % (0.0-8.0); NEUT % 56.4 % (16.0-70.0); PLATELET COUNT 208 TH/MM3 (150-450); RED CELL DISTRIBUTION WIDTH 15.7 % (11.6-17.2); WHITE BLOOD COUNT 7.5 TH/MM3 (4.0-11.0)
[2017-03-18 08:00] VITALS: BP 140/56; PULSE 86; RESP 18; TEMP 98.2; O2SAT 96
[2017-03-18] MEDS ORDERED: ACETAMINOPHEN/HYDROcodone 325 MG/5 MG TAB PO PRN (08:15)
[2017-03-18 08:27] LABS: ALT (GPT) 25 U/L (10-53); ANION GAP 7 MEQ/L (5-15); AST (GOT) 22 U/L (15-37); BLOOD UREA NITROGEN 10 MG/DL (7-18); CHLORIDE 107 MEQ/L (98-107); GLOMERULAR FILTRATION RATE 64 ML/MIN (>89); POTASSIUM 3.9 MEQ/L (3.5-5.1); SODIUM (NA) 142 MEQ/L (136-145)
[2017-03-18 08:31] LABS: ALKALINE PHOSPHATASE 104 U/L (45-117); TOTAL BILIRUBIN ADULT 0.4 MG/DL (0.2-1.0)
[2017-03-18] MEDS: ARIPiprazole 30 MG TAB PO SCH (08:37)
[2017-03-18] MEDS: SODIUM CHLORIDE 0.9% FLUSH 10 ML FLUSH IV FLUSH SCH (08:37)
[2017-03-18] MEDS: DIVALPROEX SODIUM E.R. 250 MG TAB PO SCH (08:37)
[2017-03-18] MEDS: glipiZIDE 10 MG TAB PO SCH (08:37)
[2017-03-18] MEDS: DOCUSATE SODIUM 50 MG/SENNA 8.6 MG TAB PO SCH ×2 (08:37→08:40)
[2017-03-18] MEDS: SODIUM CHLOR 0.9% 1000 ML INJ 1,000 ML IV SCH (08:37)
[2017-03-18] MEDS: FUROSEMIDE 20 MG TAB PO SCH (08:38)
[2017-03-18] MEDS: PANTOPRAZOLE SOD 40 MG DELAYED RELEASE TAB PO SCH (08:38)
[2017-03-18] MEDS: PRAVASTATIN SOD 40 MG TAB PO SCH (08:38)
[2017-03-18] MEDS: ALPRAZolam 0.5 MG TAB PO SCH (08:38)
[2017-03-18] MEDS: busPIRone HCL 10 MG TAB PO SCH (08:38)
[2017-03-18] MEDS: METOPROLOL TARTRATE 25 MG TAB PO SCH (08:38)
[2017-03-18] MEDS: ESCITALOPRAM OXALATE 20 MG TAB PO SCH (08:38)
[2017-03-18] MEDS: MULTIVITAMINS/MINERALS THERAPEUTIC TAB PO SCH (08:38)
--- NOTE | 2017-03-18 09:07 | HHI.PR ---
Subjective Remarks Follow up for abdominal pain, pneumonia, UTI, constipation. The patient reports significant relief of constipation after milk of mag yesterday. Her abdominal pain has improved. Rash has improved. She reports her cough is improving, and she feels her chest is "loosening up". Denies fevers/chills overnight. She feels ready to go home. She is requesting Lortab for exacerbation of her chronic back pain. Objective Vitals Vital Signs Date Time Temp Pulse Resp B/P Pulse Ox O2 Delivery O2 Flow Rate FiO2 03/18/17 08:00 98.2 86 18 140/56 96 03/18/17 07:22 95 21 03/18/17 03:45 98.4 85 18 119/67 93 03/18/17 00:04 98.0 90 18 138/65 93 03/17/17 20:19 98.1 89 20 126/58 93 03/17/17 19:27 92 03/17/17 16:08 98.4 67 18 160/84 97 03/17/17 12:03 98.0 77 16 90/55 92 I/O 03/17/17 03/17/17 03/17/17 03/18/17 03/18/17 03/18/17 07:00 15:00 23:00 07:00 15:00 23:00 Intake Total 450 ml 600 ml Balance 450 ml 600 ml Intake Oral 450 ml IV Total 600 ml # Bowel Movements 4 Result Diagram: 03/18/17 0651 03/18/17 0651 Imaging Last Impressions Chest X-Ray 03/16/17 2227 Signed Impressions: Service Date/Time: Thursday, March 16, 2017 22:42 - CONCLUSION: 1. Left basilar airspace disease. Primary differential diagnosis is pneumonia. Jeramie Treadwell MD Gall Bladder Ultrasound 03/16/17 0000 Signed Impressions: Service Date/Time: Thursday, March 16, 2017 22:53 - CONCLUSION: 1. Cholelithiasis with single echogenic mobile gallstones and no gallbladder wall thickening or biliary obstruction. 2. Prominent liver with findings consistent with fatty infiltration. Tanner Madrid MD Objective Remarks GENERAL: Well-nourished, well-developed elderly female patient in [facility]. SKIN: Warm and dry. Erythematous plaque throughout abdominal fold, worse on the right, with satellite maculopapular lesions; rash improved today. HEENT: Normocephalic. Atraumatic. Pupils equal and round. No scleral icterus. No injection or drainage. Mucous membranes pink and moist. NECK: Supple. Trachea midline. CARDIOVASCULAR: Regular rate and rhythm. S1, S2 noted. No murmur appreciated. RESPIRATORY: No accessory muscle use. Clear to auscultation. Breath sounds equal bilaterally. GASTROINTESTINAL: Abdomen soft, non-tender, nondistended. Normoactive bowel sounds x4. MUSCULOSKELETAL: No obvious deformities. Extremities without clubbing, cyanosis , or edema. NEUROLOGICAL: Awake and alert. No obvious cranial nerve deficits. Motor grossly within normal limits. Normal speech. PSYCHIATRIC: Appropriate mood and affect; insight and judgment normal. Medications and IVs Current Medications Medications (Trade) Dose Ordered Sig/Teena Route Start Time Stop Time Status Last Admin (NS Flush) 2 ml UNSCH PRN IV FLUSH 03/16/17 22:30 03/17/17 22:10 (D50w (Vial) Inj) 50 ml UNSCH PRN IV 03/17/17 01:30 Glucagon 1 mg 1 mg UNSCH PRN OTHER 03/17/17 01:30 (NS 1000 ml Inj) 1,000 ml @ 100 mls/hr Q10H IV 03/17/17 01:28 03/17/17 22:09 (NS Flush) 2 ml UNSCH PRN IV FLUSH 03/17/17 01:30 (NS Flush) 2 ml BID IV FLUSH 03/17/17 09:00 03/17/17 09:06 (Zofran Inj) 4 mg Q6H PRN IVP 03/17/17 01:30 (Tylenol) 650 mg Q6H PRN PO 03/17/17 01:30 (Nano-Colace) 1 tab BID PO 03/17/17 09:00 03/17/17 09:03 (Milk Of Magnesia Liq) 30 ml Q12H PRN PO 03/17/17 01:30 (Senokot) 17.2 mg Q12H PRN PO 03/17/17 01:30 (Dulcolax Supp) 10 mg DAILY PRN RECTAL 03/17/17 01:30 Lactulose 30 ml 30 ml DAILY PRN PO 03/17/17 01:30 Ceftriaxone Sodium 1000 mg/ Sodium Chloride 100 ml @ 200 mls/hr Q24H IV 03/17/17 23:00 03/17/17 22:09 (Zithromax Inj/ NS 250 ml Inj) 250 ml @ 250 mls/hr Q24H IV 03/17/17 23:00 03/17/17 22:09 (Xanax) 0.5 mg TID PO 03/17/17 09:00 03/17/17 18:14 (Abilify) 30 mg DAILY PO 03/17/17 09:00 03/17/17 09:09 (Buspar) 30 mg TID PO 03/17/17 09:00 03/17/17 18:14 (Depakote Er) 250 mg DAILY PO 03/17/17 09:00 03/17/17 09:02 (Lexapro) 20 mg DAILY PO 03/17/17 09:00 03/17/17 09:03 (Lasix) 20 mg DAILY PO 03/17/17 09:00 03/17/17 09:03 (Glucotrol) 10 mg TIDAC PO 03/17/17 08:00 03/17/17 18:14 (Melatonin) 5 mg HS PO 03/17/17 21:00 03/17/17 22:10 (Lopressor) 25 mg DAILY PO 03/17/17 09:00 03/17/17 09:03 (Remeron) 15 mg HS PO 03/17/17 21:00 03/17/17 22:10 (Singulair) 10 mg HS PO 03/17/17 21:00 03/17/17 22:10 (Theragran M Tab) 1 tab DAILY PO 03/17/17 09:00 03/17/17 09:03 (Restoril) 30 mg HS PRN PO 03/17/17 01:30 (Protonix) 40 mg DAILY PO 03/17/17 09:00 03/17/17 09:02 (Pravachol) 40 mg DAILY PO 03/17/17 09:00 03/17/17 09:04 (Mycostatin Powder) 1 applic Q8HR TOPICAL 03/17/17 14:00 03/18/17 05:55 ([place] 5-325 Mg) 1 tab Q6H PRN PO 03/18/17 08:15 A/P Problem List: (1) Abdominal pain ICD Code: R10.9 Status: Acute (2) PNA (pneumonia) ICD Code: J18.9 Status: Acute (3) Renal insufficiency ICD Code: N28.9 Status: Acute (4) Lactic acidosis ICD Code: E87.2 Status: Acute (5) DM (diabetes mellitus) ICD Code: E11.9 Status: Acute Assessment and Plan 76-year-old female with a PMH of Asthma, Anxiety, Depression, Bipolar Disorder, HTN, Hyperlipidemia and DM who presented to the ER with complaints of abdominal pain x2 wks, now w/ worsening abdominal pain and associated nausea, no vomiting. Abdominal Pain: suspect secondary to constipation in combination rash. recent CT Abd/Pelvis 03/06/17 for similar symptoms w/ no acute abnormality noted, images reviewed by me. Gallbladder US 03/16/17 w/ cholelithiasis, no gallbladder wall thickening or biliary obstruction. LFTs normal. UA with mild LE, on abx however recent urine culture with mixed doe. Analgesics/antiemetics. Pain possibly related to rash, started on Nystatin powder. Suspect related to constipation, given MOM with significant relief. Pain improving. Tolerating oral intake.Stable for discharge. Community Acquired Pneumonia: CXR w/ left basilar airspace disease, likely pneumonia, images reviewed by me. Continue antibiotics with IV Rocephin/ Zithro. DuoNeb q12h teena and prn. Symptoms improving. Repeat CXR PA/Lateral today unremarkable for infiltrate. As patient with cough and hx of COPD, will finish course of azithromycin for acute bronchitis. Lactic Acidosis: Lactate 3.9, likely secondary to dehydration rather than sepsis. Given IVF. Repeat lactate 1.6. Resolved. Renal Insufficiency: Chronic. Creatinine 1.04, previously 1.10 on 03/05/17. Given IVF, repeat labs show improvement, Cr 0.86. Resolved. DM: Monitor Accu-checks, cover with SSI. Candidal Intertrigo: throughout abdominal fold. Start on Nystatin powder q8h. Monitor for improvement. Rash improving. Chronic Back Pain: exacerbated by hospital beds. PT recommends no PT at discharge. Lortab prn pain. DVT Prophylaxis: SCD/teds. Discussed with Dr. Lemus. Discharge Planning Discharge patient to home Condition on discharge: Improved Heart Healthy Diet as tolerated Ad Shonna activity Rx written: azithro 500mg x3days, nystatin powder q8h [id number], lortab 5-325mg q6h prn pain #15 Follow-up with primary care physician within 1 week Attending Statement Seen in her bedroom and discussed with KELLY Olivera will discharge home and continue Azithromycin. Sherice Olivera PA-C Mar 18, 2017 09:07 Brain Quintana MD Mar 18, 2017 17:56
[2017-03-18] MEDS ORDERED: HYDR-3516 PO (09:20)
--- NOTE | 2017-03-18 09:33 | RADRPT ---
EXAM DATE/TIME: 03/18/2017 09:16 [place] COMPARISON: CHEST PA & LAT, December 08, 2013, 22:21. INDICATIONS : Pneumonia. MEDICAL HISTORY : None. SURGICAL HISTORY : None. ENCOUNTER: Subsequent ACUITY: 3 days PAIN SCORE: 6/10 LOCATION: Bilateral chest FINDINGS: Capsular breast implant is seen on the left. The lungs are clear. Heart and pulmonary vascularity a re normal. Portion of bony skeleton visualized is unremarkable. CONCLUSION: Negative chest for acute disease. Derik Torres MD FACR on March 18, 2017 at 9:26 Board Certified Radiologist. This report was verified electronically.
--- NOTE | 2017-03-18 09:56 | EKG ---
Date Performed: 03/17/2017 Time Performed: 00:29:48 PTAGE: 76 years EKG: Sinus rhythm WITH FREQUENT SUPRAVENTRICULAR PREMATURE COMPLEXES BORDERLINE LEFT AXIS DEVIATION ABNORMAL RHYTHM EC G PREVIOUS TRACING : 11/27/2012 03.28 DOCTOR: Tino Durant Interpretating Date/Time 03/18/2017 09:46:02
[2017-03-18] MEDS ORDERED: SENN1TAB PO (10:17)
[2017-03-18] MEDS ORDERED: AZIT500T2 PO (10:17)
[2017-03-18] MEDS ORDERED: NYST10007 TOPICAL (10:17)
--- NOTE | 2017-03-18 10:19 | HHI.DCPOC ---
Discharge Care Plan Diagnosis: (1) Abdominal pain (2) Constipation (3) Acute bronchitis (4) DM (diabetes mellitus) (5) Candidal intertrigo (6) Back pain Goals to Promote Your Health * To prevent worsening of your condition and complications * To maintain your health at the optimal level Directions to Meet Your Goals Take your medications as prescribed Follow your dietary instruction Follow activity as directed Keep your appointments as scheduled Take your immunizations and boosters as scheduled If your symptoms worsen call your PCP, if no PCP go to Urgent Care Center or Emergency Room Smoking is Dangerous to Your Health. Avoid second hand smoke Call the 24-hour hour crisis hotline for domestic abuse at Sherice Olivera PA-C Mar 18, 2017 10:19
[2017-03-18] MEDS ORDERED: IPRASOL NEB (10:20)
== END 2017-03-18 12:26 | disposition home or self-care (01) ==
LOC: NEPE 20:55 → NEDA 03-17 01:33 → NEPGCP 03-17 02:23
PROVIDERS: ADMIT Internal Medicine; ATTEND Internal Medicine
DX: R10.30 Lower abdominal pain, unspecified (principal); K80.20 Calculus of gallbladder without cholecystitis without obstruction; J44.0 Chronic obstructive pulmonary disease with (acute) lower respiratory infection; J18.9 Pneumonia, unspecified organism; N28.9 Disorder of kidney and ureter, unspecified; K59.00 Constipation, unspecified; E87.2 Acidosis; E11.9 Type 2 diabetes mellitus without complications; F31.9 Bipolar disorder, unspecified; I10 Essential (primary) hypertension; E78.5 Hyperlipidemia, unspecified; G89.29 Other chronic pain; M54.9 Dorsalgia, unspecified; B37.2 Candidiasis of skin and nail; F41.9 Anxiety disorder, unspecified; E78.00 Pure hypercholesterolemia, unspecified; G47.30 Sleep apnea, unspecified; Z99.81 Dependence on supplemental oxygen
CPT/HCPCS: 71010; 71020; 76705; 80053; 81001; 82948; 83605; 83690; 85025; 85610; 85730; 93005; 94640; 94664; 96365; 96366; 96375; 96376; 97162; 99285; G0378; G8987; G8988; J0456; J0696; J1170; J2270; J2405; J7030; J7040; J7050

== ENCOUNTER 2017-09-09 12:37 | Emergency (ER) | payer MEDICARE, OTHER ==
[~2017-09-09] VITALS: Ht 170.2 cm; Wt 92.7 kg
[~2017-09-09 12:37] MED LIST changes: -ALBUAER3 INH; -CIPR500T2 PO; +ESTR42.5V VAGINAL; -FLUTI44I INH; +IPRASOL NEB; +MELA5 PO; -MELA5TAB15 PO; +NYST10007 TOPICAL; -PERC5TAB12 PO; +SENN1TAB PO
[2017-09-09 12:39] VITALS: BP 120/61; PULSE 102; RESP 20; TEMP 97.9; O2SAT 96
--- NOTE | 2017-09-09 12:57 | PD ---
HPI Chief Complaint: Respiratory Symptoms Time Seen by Provider: 12:44 Travel History International Travel<30 days: No Contact w/Intl Traveler<30days: No Traveled to known affect area: No History of Present Illness HPI The patient is a 77-year-old female who presents to the emergency department for shortness of breath, chest congestion, and wheezing 01 week's duration. The patient states her symptoms started one week ago with shortness of breath and wheezing. The patient then developed a productive cough producing white sputum. She does complain of wheezing and "rattling" in the chest. She now complains of anterior chest pressure and tightness associated with her wheezing. The patient does have a history of COPD and previous lung carcinoma with partial lobectomy of the right upper lobe. The patient is followed by Dr. Best. The patient denies any fever, chills, or sweats. She does have a history of pneumonia in the past with similar symptoms. She denies any nausea, vomiting, diarrhea, or abdominal pain. Symptoms are moderate without any alleviating or exacerbating factors. The patient has been using nebulizers at home with minimal alleviation of her symptoms. The patient's primary physician is Dr. Almonte. [facility] Past Medical History Arthritis: No Asthma: Yes Autoimmune Disease: No Blood Disorders: No Anxiety: Yes Depression: Yes Heart Rhythm Problems: No Cancer: Yes (LUNG) Cardiovascular Problems: Yes High Cholesterol: Yes Chemotherapy: No Chest Pain: No Congestive Heart Failure: No COPD: Yes Cerebrovascular Accident: No Diabetes: Yes Diminished Hearing: No Endocrine: Yes Gastrointestinal Disorders: Yes ("PROBLEMS DIGESTING MY FOOD") GERD: Yes Glaucoma: No Genitourinary: No Headaches: Yes Hepatitis: No Hiatal Hernia: Yes (HERNIA REPAIR) Heparin Induced Thrombocytopen: No Hypertension: Yes Immune Disorder: No Implanted Vascular Access Dvce: Yes Kidney Stones: Yes Musculoskeletal: No Neurologic: No Psychiatric: Yes Reproductive: No Respiratory: Yes (COPD) Immunizations Current: No Migraines: No Myocardial Infarction: No Radiation Therapy: No Renal Failure: No Seizures: No Sickle Cell Disease: No Sleep Apnea: Yes Thyroid Disease: No Ulcer: Yes PNEUMOCCOCAL Vaccine (Year): 1 Menopausal: Yes : 1 Para: 1 Past Surgical History Abdominal Surgery: Yes (COLOSTOMY REVERSAL,APPENDECTOMY,HERNIA REPAIR) AICD: No Appendectomy: Yes Arteriovenous Shunt: No Body Medical Devices: RIGHT ANKLE FX FIXED WITH PIN & SCREWS, BILATERAL BREAST IMPLANTS Cardiac Surgery: No Cholecystectomy: No Ear Surgery: No Endocrine Surgery: No Eye Surgery: No Genitourinary Surgery: No Gynecologic Surgery: Yes (PARTIAL HYSTERECTOMY) Hysterectomy: Yes Insulin Pump: No Joint Replacement: No Neurologic Surgery: No Oral Surgery: No Pacemaker: No Thoracic Surgery: No Other Surgery: Yes (APPENDECTOMY, COLOSTOMY,HYSTERECTOMY, BREAST IMPLANTS , REVERSAL OF COLOSTOM) Social History Alcohol Use: No Tobacco Use: No (QUIT 10 YRS AGO SMOKED FOR 30+ YRS 1 PPD) Substance Use: No Allergies-Medications (Allergen,Severity, Reaction): Coded Allergies: trazodone (Unverified Allergy, Severe, HIVES, 09/09/17) levofloxacin (Unverified Allergy, Mild, Itching, 09/09/17) erythema and pruritis at infusion site codeine (Unverified Adverse Reaction, Severe, NAUSEA/VOMITING, 09/09/17) meperidine (Unverified Adverse Reaction, Severe, NAUSEA/VOMITING, 09/09/17) Reported Meds & Prescriptions Reported Meds & Active Scripts Active Estrace Vaginal (Estradiol) 0.01% Cream 1 Gm VAGINAL HS Reported Centrum (Multiple Vitamins W/ Minerals) 1 Chew 1 Tab CHEW DAILY Melatonin 5 Mg Tab 6 Mg PO HS Mirtazapine 15 Mg Tab 15 Mg PO HS Montelukast (Montelukast Sodium) 10 Mg Tab 10 Mg PO HS Zocor (Simvastatin) 20 Mg Tab 20 Mg PO DAILY Metoprolol Tartrate 25 Mg Tab 25 Mg PO DAILY Temazepam 30 Mg Cap 30 Mg PO HS PRN Omeprazole 40 Mg Cap 40 Mg PO DAILY Furosemide 20 Mg Tab 20 Mg PO DAILY Glipizide 10 Mg Tab 10 Mg PO TIDAC Take 30 minutes before a meal Escitalopram (Escitalopram Oxalate) 20 Mg Tab 20 Mg PO DAILY Divalproex ER (Divalproex Sodium) 250 Mg Kiya 250 Mg PO DAILY Buspirone (Buspirone HCl) 30 Mg Tab 30 Mg PO TID Aripiprazole 30 Mg Tab 30 Mg PO DAILY Alprazolam 0.5 Mg Tab 0.5 Mg PO TID Albuterol Neb (Albuterol Sulfate) 1.25 Mg/3 Ml Neb 1.25 Mg NEB Q4HR NEB PRN Review of Systems Except as stated in HPI: all other systems reviewed are Neg General / Constitutional: No: Fever, Chills HENT: No: Lightheadedness Cardiovascular: Positive: Chest Pain or Discomfort, Dyspnea on exertion, No: Tachycardia Respiratory: Positive: Cough, Shortness of Breath, Wheezing Gastrointestinal: No: Nausea, Vomiting, Abdominal Pain Musculoskeletal: Positive: Weakness, No: Edema Physical Exam Narrative GENERAL: Awake, alert, pleasant 77-year-old female who appears her stated age and is in mild respiratory distress. SKIN: Focused skin assessment warm/dry. Skin lesion noted over the anterior aspect the left ramsay. HEAD: Atraumatic. Normocephalic. EYES: No injection or drainage. ENT: No nasal bleeding or discharge. Mucous membranes pink and moist. NECK: Trachea midline. No JVD. CARDIOVASCULAR: Regular, tachycardic with a heart rate of 100. RESPIRATORY: No accessory muscle use. Prolonged expiratory phase with diffuse wheezing, rhonchi noted in the right base. GASTROINTESTINAL: Abdomen soft, non-tender, nondistended. No rebound tenderness , guarding, rigidity. MUSCULOSKELETAL: No obvious deformities. No clubbing. No cyanosis. No edema. NEUROLOGICAL: Awake and alert. No obvious cranial nerve deficits. Motor grossly within normal limits. Normal speech. PSYCHIATRIC: Appropriate mood and affect; insight and judgment normal. Data Data Last Documented VS Vital Signs Date Time Temp Pulse Resp B/P (MAP) Pulse Ox O2 Delivery O2 Flow Rate FiO2 09/09/17 13:54 82 18 111/62 (78) 95 Room Air 09/09/17 13:02 21 09/09/17 12:39 97.9 Orders Orders Complete Blood Count With Diff (09/09/17 12:50) Comprehensive Metabolic Panel (09/09/17 12:50) B-Type Natriuretic Peptide (09/09/17 12:50) Magnesium (Mg) (09/09/17 12:50) Ckmb (Isoenzyme) Profile (09/09/17 12:50) Troponin I (09/09/17 12:50) Blood Culture (09/09/17 12:50) Iv Access Insert/Monitor (09/09/17 12:50) Electrocardiogram (09/09/17 12:50) Ecg Monitoring (09/09/17 12:50) Oximetry (09/09/17 12:50) Oxygen Administration (09/09/17 12:50) Chest, Single Ap (09/09/17 12:50) Sodium Chloride 0.9% Flush (Ns Flush) (09/09/17 13:00) Methylprednisolone So Succ Inj (Solumedr (09/09/17 13:00) Albuterol-Ipratropium Neb (Duoneb Neb) (09/09/17 13:00) Lactic Acid (09/09/17 12:50) Labs Laboratory Tests Test 09/09/17 13:05 White Blood Count 14.3 TH/MM3 Red Blood Count 4.28 MIL/MM3 Hemoglobin 13.5 GM/DL Hematocrit 41.7 % Mean Corpuscular Volume 97.5 FL Mean Corpuscular Hemoglobin 31.6 PG Mean Corpuscular Hemoglobin Concent 32.5 % Red Cell Distribution Width 15.2 % Platelet Count 356 TH/MM3 Mean Platelet Volume 7.7 FL Neutrophils (%) (Auto) 63.3 % Lymphocytes (%) (Auto) 26.4 % Monocytes (%) (Auto) 7.5 % Eosinophils (%) (Auto) 1.4 % Basophils (%) (Auto) 1.4 % Neutrophils # (Auto) 9.0 TH/MM3 Lymphocytes # (Auto) 3.8 TH/MM3 Monocytes # (Auto) 1.1 TH/MM3 Eosinophils # (Auto) 0.2 TH/MM3 Basophils # (Auto) 0.2 TH/MM3 CBC Comment DIFF FINAL Differential Comment Blood Urea Nitrogen 13 MG/DL Creatinine 0.92 MG/DL Random Glucose 109 MG/DL Total Protein 7.5 GM/DL Albumin 3.3 GM/DL Calcium Level 8.9 MG/DL Magnesium Level 1.8 MG/DL Alkaline Phosphatase 142 U/L Aspartate Amino Transf (AST/SGOT) 26 U/L Alanine Aminotransferase (ALT/SGPT) 23 U/L Total Bilirubin 0.4 MG/DL Sodium Level 139 MEQ/L Potassium Level 4.2 MEQ/L Chloride Level 102 MEQ/L Carbon Dioxide Level 30.3 MEQ/L Anion Gap 7 MEQ/L Estimat Glomerular Filtration Rate 59 ML/MIN Lactic Acid Level 2.0 mmol/L Total Creatine Kinase 93 U/L Troponin I LESS THAN 0.02 NG/ML B-Type Natriuretic Peptide 21 PG/ML MDM Medical Decision Making Medical Screen Exam Complete: Yes Emergency Medical Condition: Yes Medical Record Reviewed: Yes Interpretation(s) EKG reveals normal sinus rhythm with a rate of 71. Nonspecific T wave changes. Last Impressions Chest X-Ray 09/09/17 1250 Signed Impressions: Service Date/Time: Saturday, September 09, 2017 13:16 - CONCLUSION: 1. Stable slight asymmetrical left lower lung zone hazy opacity likely reflecting asymmetrical chest wall soft tissues. 2. No significant interval change or acute abnormality. Moris Wetzel MD Laboratory Tests Test 09/09/17 13:05 White Blood Count 14.3 TH/MM3 Red Blood Count 4.28 MIL/MM3 Hemoglobin 13.5 GM/DL Hematocrit 41.7 % Mean Corpuscular Volume 97.5 FL Mean Corpuscular Hemoglobin 31.6 PG Mean Corpuscular Hemoglobin Concent 32.5 % Red Cell Distribution Width 15.2 % Platelet Count 356 TH/MM3 Mean Platelet Volume 7.7 FL Neutrophils (%) (Auto) 63.3 % Lymphocytes (%) (Auto) 26.4 % Monocytes (%) (Auto) 7.5 % Eosinophils (%) (Auto) 1.4 % Basophils (%) (Auto) 1.4 % Neutrophils # (Auto) 9.0 TH/MM3 Lymphocytes # (Auto) 3.8 TH/MM3 Monocytes # (Auto) 1.1 TH/MM3 Eosinophils # (Auto) 0.2 TH/MM3 Basophils # (Auto) 0.2 TH/MM3 CBC Comment DIFF FINAL Differential Comment Blood Urea Nitrogen 13 MG/DL Creatinine 0.92 MG/DL Random Glucose 109 MG/DL Total Protein 7.5 GM/DL Albumin 3.3 GM/DL Calcium Level 8.9 MG/DL Magnesium Level 1.8 MG/DL Alkaline Phosphatase 142 U/L Aspartate Amino Transf (AST/SGOT) 26 U/L Alanine Aminotransferase (ALT/SGPT) 23 U/L Total Bilirubin 0.4 MG/DL Sodium Level 139 MEQ/L Potassium Level 4.2 MEQ/L Chloride Level 102 MEQ/L Carbon Dioxide Level 30.3 MEQ/L Anion Gap 7 MEQ/L Estimat Glomerular Filtration Rate 59 ML/MIN Lactic Acid Level 2.0 mmol/L Total Creatine Kinase 93 U/L Troponin I LESS THAN 0.02 NG/ML B-Type Natriuretic Peptide 21 PG/ML Differential Diagnosis Differential diagnosis includes pneumonia, bronchitis, congestive heart failure , pulmonary edema, pleural effusion, acute coronary syndrome, influenza, sepsis. Narrative Course IV was established, labs are drawn and sent, and the patient was placed on cardiac telemetry monitoring and continuous pulse oximetry monitoring. The patient was administered Solu-Medrol 125 mg intravenously and 2 DuoNeb's. EKG was ordered and interpreted. Chest x-ray was obtained. White count is mildly elevated at 14.3. Chest x-rays negative for pneumonia. Lactic acid was normal at 2.0. Troponin and CPK are unremarkable. The patient was reevaluated at 1: 50 PM, her symptoms did improve after nebulizer treatments. Her O2 saturation on room air varies between 90 and 95%, she does have a history of COPD. BNP is 21. The patient appears to have rhonchi discussed with COPD exacerbation and will be placed on oral steroids, nebulizers, and Zithromax. She is advised to follow-up with her primary physician. She will be provided a copy of her x-ray results and lab results at discharge. Diagnosis Primary Impression: Acute bronchitis Qualified Codes: J20.9 - Acute bronchitis, unspecified Additional Impression: COPD (chronic obstructive pulmonary disease) Qualified Codes: J44.1 - Chronic obstructive pulmonary disease with (acute) exacerbation Patient Instructions: General Instructions Additional Instructions: Medications as directed. Use nebulizers every 4-6 hours. Follow-up with your primary physician. Please provide the patient a copy of her x-ray results and lab results at discharge. Return if symptoms worsen or progress. Med/Other Pt SpecificInfo: Prescription(s) given Scripts Albuterol Neb (Albuterol Neb) 2.5 Mg/3 Ml Neb 2.5 MG NEB Q4HR NEB Y for SHORTNESS OF BREATH, #60 NEBULE 0 Refills Prov: Fredy Weathers MD 09/09/17 Azithromycin (Zithromax Z-Callum) 250 Mg Dspk 250 MG PO DIRECTED for Infection, #1 DSPK 0 Refills 500 MG (2 tabs) day 1, then 1 tab days 2-5. Prov: Fredy Weathers MD 09/09/17 Prednisone (Deltasone) 20 Mg Tab 40 MG PO DAILY for 5 Days, #10 TAB 0 Refills Prov: Fredy Weathers MD 09/09/17 Disposition: 01 DISCHARGE HOME Condition: Stable Fredy Weathers MD Sep 09, 2017 12:57
[2017-09-09] MEDS ORDERED: methylPREDNISolone SOD SUCC 125 MG/2 ML VIAL IV PUSH ONE (13:00)
[2017-09-09] MEDS: RESP: ALBUTEROL 2.5 MG/IPRATROPIUM 0.5 MG NEB (SCH) INH (13:00)
[2017-09-09] MEDS ORDERED: SODIUM CHLORIDE 0.9% FLUSH 10 ML FLUSH IVF PRN (13:00)
[2017-09-09 13:02] VITALS: O2SAT 92
[2017-09-09 13:27] LABS: BASOPHIL # 0.2 TH/MM3 (0-0.2); BASOPHIL % 1.4 % (0.0-2.0); EOSINOPHIL # 0.2 TH/MM3 (0-0.4); EOSINOPHIL % 1.4 % (0.0-4.0); HEMATOCRIT 41.7 % (35.0-46.0); HEMO FLAGS DIFF FINAL; LYMPH % 26.4 % (9.0-44.0); LYMPHOCYTE # 3.8 TH/MM3 (1.0-4.8); MEAN CELL VOLUME 97.5 FL (80.0-100.0); MEAN CORPUSCULAR HEMOGLOBIN 31.6 PG (27.0-34.0); MEAN CORPUSCULAR HGB CONC 32.5 % (32.0-36.0); MONO % 7.5 % (0.0-8.0); NEUT % 63.3 % (16.0-70.0); PLATELET COUNT 356 TH/MM3 (150-450); RED BLOOD COUNT 4.28 MIL/MM3 (4.00-5.30); RED CELL DISTRIBUTION WIDTH 15.2 % (11.6-17.2); WHITE BLOOD COUNT 14.3 TH/MM3 (4.0-11.0)
--- NOTE | 2017-09-09 13:29 | RADRPT ---
EXAM DATE/TIME: 09/09/2017 13:16 [facility] COMPARISON: CHEST PA & LAT, March 18, 2017, 9:16. CHEST SINGLE AP, March 16, 2017, 22:42. INDICATIONS : Short of breath MEDICAL HISTORY : Chronic obstructive pulmonary disease. SURGICAL HISTORY : None. ENCOUNTER: Initial ACUITY: 1 week PAIN SCORE: 0/10 LOCATION: Bilateral chest FINDINGS: Stable slightly asymmetrical hazy opacity in the left lower lung zone. Cardiomediastinal contours are within normal limits. Bony thorax is intact. CONCLUSION: 1. Stable slight asymmetrical left lower lung zone hazy opacity likely reflecting asymmetrical chest wall soft tissues. 2. No significant interval change or acute abnormality. Moris Wetzel MD on September 09, 2017 at 13:24 Board Certified Radiologist. This report was verified electronically.
[2017-09-09 13:34] LABS: CHLORIDE 102 MEQ/L (98-107); POTASSIUM 4.2 MEQ/L (3.5-5.1); SODIUM (NA) 139 MEQ/L (136-145)
[2017-09-09 13:39] LABS: ANION GAP 7 MEQ/L (5-15); BICARBONATE 30.3 MEQ/L (21.0-32.0); BLOOD UREA NITROGEN 13 MG/DL (7-18); MAGNESIUM 1.8 MG/DL (1.5-2.5)
[2017-09-09 13:41] VITALS: O2SAT 95
[2017-09-09 13:42] LABS: ALT (GPT) 23 U/L (10-53); AST (GOT) 26 U/L (15-37)
[2017-09-09 13:43] LABS: GLOMERULAR FILTRATION RATE 59 ML/MIN (>89)
[2017-09-09 13:44] LABS: TOTAL BILIRUBIN ADULT 0.4 MG/DL (0.2-1.0)
[2017-09-09 13:45] LABS: ALKALINE PHOSPHATASE 142 U/L (45-117)
[2017-09-09 13:48] LABS: CREATINE KINASE 93 U/L (26-192)
[2017-09-09 13:54] VITALS: BP 111/62; PULSE 82; RESP 18; O2SAT 95
[2017-09-09] MEDS ORDERED: ALBU0.08 NEB (14:21)
[2017-09-09] MEDS ORDERED: PRED-503 PO (14:21)
[2017-09-09] MEDS ORDERED: ZITHTAB PO (14:21)
[2017-09-09 14:57] VITALS: BP 116/63
--- NOTE | 2017-09-10 19:40 | EKG ---
Date Performed: 09/09/2017 Time Performed: 12:57:11 PTAGE: 77 years EKG: Sinus rhythm BORDERLINE LEFT AXIS DEVIATION NONSPECIFIC T-WAVE ABNORMALITY Since previous tracing, no significant change noted BORDERLINE ECG PREVIOUS TRACING : 03/17/2017 [id number] DOCTOR: Kris Angelo Interpretating Date/Time 09/10/2017 19:40:04
== END 2017-09-09 15:02 | disposition home or self-care (01) ==
LOC: PHED 12:37
DX: J20.9 Acute bronchitis, unspecified (principal); J44.1 Chronic obstructive pulmonary disease with (acute) exacerbation; I10 Essential (primary) hypertension; E78.00 Pure hypercholesterolemia, unspecified; E11.9 Type 2 diabetes mellitus without complications; R94.31 Abnormal electrocardiogram [ECG] [EKG]; F32.9 Major depressive disorder, single episode, unspecified; Z85.118 Personal history of other malignant neoplasm of bronchus and lung; Z88.5 Allergy status to narcotic agent; Z79.899 Other long term (current) drug therapy
CPT/HCPCS: 71010; 80053; 82550; 83605; 83735; 83880; 84484; 85025; 87040; 93005; 94640; 94664; 96374; 99285; J2930